=== PATIENT | female | born 1940 | race Caucasian/White ===

== ENCOUNTER 2019-12-16 16:25 | Inpatient (IN) | payer MEDICARE, OTHER ==
[~2019-12-16] VITALS: Ht 152.4 cm; Wt 66.0 kg
[2019-12-16 00:03] VITALS: BP 139/66
--- NOTE | 2019-12-16 16:30 | NUR ---
Dr. Okeefe at bedside for MSE
[2019-12-16] MEDS ORDERED: ZIPRASIDONE MESYLATE 20 MG VIAL IM ONE ×4 (17:00→18:15)
[2019-12-16] MEDS ORDERED: diphenhydrAMINE 50 MG/1 ML VIAL IV ONE (17:00)
[2019-12-16] MEDS ORDERED: INSU100V28 SQ (17:05)
[2019-12-16] MEDS ORDERED: DEXT50DI8 IV (17:05)
[2019-12-16] MEDS ORDERED: INSU3INS6 SQ (17:05)
[2019-12-16] MEDS ORDERED: LORA-259 GT (17:05)
[2019-12-16] MEDS ORDERED: QUET50TA GT (17:05)
[2019-12-16] MEDS ORDERED: DEXT38GE12 PO (17:05)
[2019-12-16] MEDS ORDERED: ASCO500P18 GT (17:05)
[2019-12-16] MEDS ORDERED: GLUC1KIT IJ (17:05)
[2019-12-16] MEDS ORDERED: FERR325T28 GT (17:05)
[2019-12-16] MEDS ORDERED: APIX2.5T GT (17:05)
[2019-12-16] MEDS ORDERED: ONDA4TAB5 GT (17:05)
[2019-12-16] MEDS ORDERED: VALP250C3 GT (17:05)
[2019-12-16] MEDS ORDERED: LEVE500T20 GT (17:05)
[2019-12-16 17:13] LABS: BASOPHILS # (AUTO) 0.1 K/uL (0.0-8.0); BASOPHILS % (AUTO) 1.3 % (0.0-2.0); EOSINOPHILS # (AUTO) 0.7 K/uL (0.0-0.7); EOSINOPHILS % (AUTO) 8.8 % (0.0-7.0); HEMATOCRIT 29.4 % (31.2-41.9); HEMOGLOBIN 9.7 g/dL (10.9-14.3); LYMPHOCYTES # (AUTO) 1.9 K/uL (20.0-40.0); LYMPHOCYTES % (AUTO) 24.8 % (20.5-51.5); MEAN CORPUSCULAR HEMOGLOBIN 29.9 uug (24.7-32.8); MEAN CORPUSCULAR HGB CONC 33 g/dL (32.3-35.6); MEAN CORPUSCULAR VOLUME 90.4 fL (75.5-95.3); MONOCYTES # (AUTO) 0.7 K/uL (2.0-10.0); MONOCYTES % (AUTO) 8.6 % (0.0-11.0); NEUTROPHILS # (AUTO) 4.4 K/uL (1.8-8.9); NEUTROPHILS % (AUTO) 56.5 % (38.5-71.5); PLATELET COUNT (AUTO) 209 K/uL (179-408); RED BLOOD CELL COUNT(AUTO) 3.25 MIL/uL (3.63-4.92); WHITE BLOOD COUNT (AUTO) 7.8 K/uL (3.8-11.8)
[2019-12-16] MEDS ORDERED: diphenhydrAMINE 50 MG/1 ML VIAL ONE (17:14)
[2019-12-16 17:27] LABS: ALANINE AMINOTRANSFERASE 17 U/L (14-59); ALKALINE PHOSPHATASE 64 U/L (50-136); ASPARTATE AMINOTRANSFERASE 13 U/L (15-37); BILIRUBIN,DIRECT 0.1 mg/dL (0.0-0.2); BILIRUBIN,TOTAL 0.3 mg/dL (0.2-1.0); CARBON DIOXIDE 30 mmol/L (21-32); CHLORIDE 105 mmol/L (98-107); CREATININE 1.3 mg/dL (0.6-1.3); GLUCOSE 142 mg/dL (74-106); POTASSIUM 4.1 mmol/L (3.5-5.1); TOTAL PROTEIN, SERUM 7.1 g/dL (6.4-8.2); UREA NITROGEN, BLOOD 43 mg/dL (7-18)
[2019-12-16 17:34] LABS: THYROID STIMULATING HORMONE 6.002 mIU/mL (0.358-3.740)
[2019-12-16 17:40] LABS: ETHANOL < 3 MG/DL (0-0)
[2019-12-16 18:10] LABS: *BILIRUBIN,URIN NEGATIVE (NEGATIVE); *BLOOD, URINE 2+ (NEGATIVE); *CLARITY,URINE CLOUDY (CLEAR); *COLOR,URINE YELLOW (YELLOW); *KETONES,URINE NEGATIVE (NEGATIVE); *UROBILINOGEN,URINE 0.2 E.U./dl (NORMAL); LEUKOCYTE ESTERASE ,URINE 3+ (NEGATIVE); NITRITE, URINE POSITIVE (NEGATIVE); UGLUCOSE NEGATIVE (NEGATIVE)
[2019-12-16 18:24] LABS: *AMPHETAMINE, URINE NEGATIVE (NEGATIVE); *BARBITURATE, URINE NEGATIVE (NEGATIVE); *CANNABINOID, URINE NEGATIVE (NEGATIVE); *COCCAINE, URINE NEGATIVE (NEGATIVE); *OPIATE, URINE NEGATIVE (NEGATIVE); *PHENCYCLIDINE SCREEN,URINE NEGATIVE (NEGATIVE)
[2019-12-16] MEDS ORDERED: CEFTRIAXONE 1 G in IV DEXTROSE 5% 50 ML IV ONE (18:30)
[2019-12-16] MEDS ORDERED: CEFTRIAXONE /D5W 50ML IVPB **ER PYXIS IV ONE (18:30)
--- NOTE | 2019-12-16 18:31 | NUR ---
Dr. Okeefe speaking with Dr. Padron
--- NOTE | 2019-12-16 18:35 | NUR ---
Pt. admitted to Telemetry , under care of Dr. Padron Belongs List completed, MRSA swab done
[2019-12-16] MEDS ORDERED: LORAZEPAM 2 MG/1 ML VIAL IV ONE (18:45)
[2019-12-16] MEDS ORDERED: LORAZEPAM 2 MG/1 ML VIAL ONE (18:53)
--- NOTE | 2019-12-16 19:27 | NUR ---
Report given to Dolores PIEDRA
--- NOTE | 2019-12-16 19:42 | NUR ---
received patient arousable to touch , on bedside monitor , SR, , hl lac intact , gt intact , cesar intact
--- NOTE | 2019-12-16 20:10 | NUR ---
Patient arrived on unit via gurney from ED. AAOx1 to name. Pt is confused. No signs or symptoms of acute distress noted at this time. Pt is on RA and denies SOB. Pt unable to verbalize pain, speech is delayed and unclear. Using the FLACC Scale rating is 0. assistant manager retail on. Bed low and in locked position. Bed alarm on. Seizure precautions in place and will continue to monitor.
[2019-12-16 20:24] LABS: BACTERIA,URINE MANY /HPF (NONE SEEN); SQUAMOUS EPITHELIAL CELL,UR FEW /HPF (NONE SEEN); WBC,URINE TNTC /HPF (0-3)
[2019-12-16] MEDS ORDERED: levETIRAcetam 500 MG/5 ML LIQUID UDC PO SCH (21:00)
[2019-12-16] MEDS ORDERED: INSULIN REGULAR, HUMAN 300 UNIT/3 ML VIAL SQ PRN (22:15)
[2019-12-16] MEDS ORDERED: DEXTROSE 50% 50 ML DISP.SYRIN IV PRN (22:15)
[2019-12-16] MEDS: VALPROIC ACID 250 MG/5 ML LIQUID UDC GT SCH (23:16)
[2019-12-16] MEDS: QUETIAPINE FUMARATE 25 MG TABLET GT SCH (23:17)
[2019-12-16] MEDS: APIXABAN 5 MG TABLET GT SCH (23:22)
[2019-12-17] MEDS ORDERED: DEXTROSE 50% 50 ML DISP.SYRIN IV PRN (00:30)
[2019-12-17] MEDS ORDERED: INSULIN REGULAR, HUMAN 300 UNIT/3 ML VIAL SQ PRN (00:30)
[2019-12-17] MEDS ORDERED: LORAZEPAM 1 MG TABLET GT SCH (01:00)
[2019-12-17] MEDS: BLOOD SUGAR DIAGNOSTIC 1 EACH STRIP VI SCH ×5 (01:17→23:33)
[2019-12-17 04:12] VITALS: BP 135/57
[2019-12-17 06:45] LABS: BASOPHILS # (AUTO) 0.1 K/uL (0.0-8.0); BASOPHILS % (AUTO) 1.3 % (0.0-2.0); EOSINOPHILS # (AUTO) 0.6 K/uL (0.0-0.7); EOSINOPHILS % (AUTO) 7.3 % (0.0-7.0); HEMATOCRIT 31.5 % (31.2-41.9); HEMOGLOBIN 10.3 g/dL (10.9-14.3); LYMPHOCYTES # (AUTO) 1.3 K/uL (20.0-40.0); LYMPHOCYTES % (AUTO) 15.8 % (20.5-51.5); MEAN CORPUSCULAR HEMOGLOBIN 29.7 uug (24.7-32.8); MEAN CORPUSCULAR HGB CONC 33 g/dL (32.3-35.6); MEAN CORPUSCULAR VOLUME 90.4 fL (75.5-95.3); MONOCYTES # (AUTO) 0.7 K/uL (2.0-10.0); MONOCYTES % (AUTO) 8.2 % (0.0-11.0); NEUTROPHILS # (AUTO) 5.6 K/uL (1.8-8.9); NEUTROPHILS % (AUTO) 67.4 % (38.5-71.5); PLATELET COUNT (AUTO) 211 K/uL (179-408); RED BLOOD CELL COUNT(AUTO) 3.48 MIL/uL (3.63-4.92); WHITE BLOOD COUNT (AUTO) 8.3 K/uL (3.8-11.8)
[2019-12-17 06:55] LABS: CREATININE 1.2 mg/dL (0.6-1.3); POTASSIUM 4.3 mmol/L (3.5-5.1)
[2019-12-17] MEDS ORDERED: BLOOD SUGAR DIAGNOSTIC 1 EACH STRIP VI SCH (07:30)
[2019-12-17] MEDS ORDERED: ONDANSETRON HCL 4 MG TABLET GT PRN (07:45)
[2019-12-17] MEDS ORDERED: NEPRO 1000 ML GT PRN ×2 (07:45→10:34)
--- NOTE | 2019-12-17 08:00 | NUR ---
Pt in bed asleep, arousable by name and touch, confused, trying to get up. On RA with no SOB or distress at this time. On tele. IV on left AC 20g flushed and patent. Gtube feeding in place and on, no residual. unable to ambulate. Seizure precaution in place. Bed locked in lowest position with siderails 3x up. Bed alarm on. Call light within reach
[2019-12-17] MEDS: FERROUS SULFATE 300 MG/5 ML LIQUID UDC GT SCH ×3 (08:29→16:19)
[2019-12-17] MEDS: VALPROIC ACID 250 MG/5 ML LIQUID UDC GT SCH ×2 (08:30→16:19)
[2019-12-17] MEDS: levETIRAcetam 500 MG/5 ML LIQUID UDC GT SCH ×2 (08:30→20:09)
[2019-12-17] MEDS: QUETIAPINE FUMARATE 25 MG TABLET GT SCH ×3 (08:31→16:19)
[2019-12-17] MEDS: ASCORBIC ACID 250 MG TABLET GT SCH ×2 (08:31→20:09)
[2019-12-17] MEDS: APIXABAN 5 MG TABLET GT SCH ×2 (08:32→16:20)
[2019-12-17] MEDS: LORAZEPAM 1 MG TABLET GT SCH ×3 (08:36→16:18)
[2019-12-17] MEDS: INSULIN GLARGINE,HUM 300 UNITS/3 ML CARTRIDGE SQ SCH (08:38)
[2019-12-17] MEDS ORDERED: FERROUS SULFATE 325 MG TABEC PO SCH (09:00)
[2019-12-17 11:08] VITALS: BP 131/62
--- NOTE | 2019-12-17 12:45 | NUR ---
Patient yelling, very confused, unable to redirect and reorient.
--- NOTE | 2019-12-17 13:07 | NUR ---
decreased TF rate to 30cc/hr
[2019-12-17] MEDS: NEPRO 1000 ML GT PRN (14:07)
--- NOTE | 2019-12-17 14:09 | NUR ---
Brought down for CT chest via bed.
[2019-12-17 15:06] VITALS: BP 137/50
[2019-12-17] MEDS: CEFTRIAXONE 1 G in IV DEXTROSE 5% 50 ML IV SCH (17:38)
--- NOTE | 2019-12-17 18:10 | NUR ---
Pt stable throughout shift, slept intermittently, yells at times, unable to be redirected and reoriented. On RA with no SOB or distress at this time. On tele with uncontrolled Afib. IV on left AC 20g flushed and patent. Seizure precaution observed. Gtube feeding @ 30cc/hr, no residual. Bed locked in lowest position with siderails 3x up. Call light within reach
--- NOTE | 2019-12-17 19:00 | NUR ---
Received pt in bed, sleeping. Easy to arouse. Pt is unable to reorient or redirect. No s/s of acute distress. V/S stable on room air. Pts Gtube is intact, patent with no s/s of infection, running with Nepro at 30cc. Pt is controlled afib, 71 on tele monitor. Seizure precaution observed. Safety measures in place. Bed low and locked in position. Call light within reach. Will continue with the plan of care.
[2019-12-17 20:04] VITALS: BP 127/50
[2019-12-18 00:47] VITALS: BP 127/56
[2019-12-18] MEDS ORDERED: QUETIAPINE FUMARATE 25 MG TABLET GT ONE (03:15)
--- NOTE | 2019-12-18 03:20 | NUR ---
Pt awake, keep on yelling out names, trying to get out of the bed. SECTION MAINTAINER Pito notified, ordered 12.5mg Seroquel. Will carry out order. Will continue to monitor.
[2019-12-18 05:02] VITALS: BP 146/62
[2019-12-18] MEDS: BLOOD SUGAR DIAGNOSTIC 1 EACH STRIP VI SCH ×3 (06:23→17:21)
[2019-12-18] MEDS: NEPRO 1000 ML GT PRN (06:25)
[2019-12-18 06:44] LABS: BASOPHILS # (AUTO) 0.1 K/uL (0.0-8.0); BASOPHILS % (AUTO) 1.2 % (0.0-2.0); EOSINOPHILS # (AUTO) 0.7 K/uL (0.0-0.7); EOSINOPHILS % (AUTO) 8.4 % (0.0-7.0); HEMATOCRIT 28.6 % (31.2-41.9); HEMOGLOBIN 9.4 g/dL (10.9-14.3); LYMPHOCYTES # (AUTO) 1.8 K/uL (20.0-40.0); MEAN CORPUSCULAR HEMOGLOBIN 29.9 uug (24.7-32.8); MEAN CORPUSCULAR HGB CONC 33 g/dL (32.3-35.6); MEAN CORPUSCULAR VOLUME 90.9 fL (75.5-95.3); MONOCYTES # (AUTO) 0.7 K/uL (2.0-10.0); MONOCYTES % (AUTO) 8.4 % (0.0-11.0); PLATELET COUNT (AUTO) 205 K/uL (179-408); RED BLOOD CELL COUNT(AUTO) 3.14 MIL/uL (3.63-4.92); WHITE BLOOD COUNT (AUTO) 8.3 K/uL (3.8-11.8)
[2019-12-18 06:58] LABS: CREATININE 1.1 mg/dL (0.6-1.3); POTASSIUM 4.1 mmol/L (3.5-5.1)
--- NOTE | 2019-12-18 07:05 | NUR ---
Pt slept intermittently through the night. Pt had episodes of yelling and trying to get out of bed. Pt is unable to redirect and reorient. Pt has no s/s of acute distress. V/S stable on room air. Controlled afib 85 on tele monitor. Gtube is intact with Nepro running at 30cc. Comfort care and needs attended. Repositioned for comfort. Kept clean and dry. Fall and aspiration precaution maintained. Safety measures in place. Bed low and locked in position. Call light within reach. Will endorse to the oncoming nurse accordingly
[2019-12-18] MEDS: FERROUS SULFATE 300 MG/5 ML LIQUID UDC GT SCH ×3 (07:39→16:03)
[2019-12-18] MEDS: VALPROIC ACID 250 MG/5 ML LIQUID UDC GT SCH ×2 (07:39→16:03)
[2019-12-18] MEDS: levETIRAcetam 500 MG/5 ML LIQUID UDC GT SCH ×2 (07:39→20:42)
[2019-12-18] MEDS: QUETIAPINE FUMARATE 25 MG TABLET GT SCH ×3 (07:40→16:03)
[2019-12-18] MEDS: LORAZEPAM 1 MG TABLET GT SCH ×4 (07:40→20:43)
[2019-12-18] MEDS: ASCORBIC ACID 250 MG TABLET GT SCH ×2 (07:41→20:43)
[2019-12-18] MEDS: APIXABAN 5 MG TABLET GT SCH ×2 (07:42→16:14)
[2019-12-18] MEDS: INSULIN GLARGINE,HUM 300 UNITS/3 ML CARTRIDGE SQ SCH (07:44)
[2019-12-18 11:57] VITALS: BP 149/55
[2019-12-18 16:12] VITALS: BP 142/69
[2019-12-18] MEDS: CEFTRIAXONE 1 G in IV DEXTROSE 5% 50 ML IV SCH (17:17)
--- NOTE | 2019-12-18 19:30 | NUR ---
Received patient in bed, awake, yelling out for "Jennifer" and "Ilya". Patient is confused and unable to be redirected or reoriented. No signs or symptoms of acute distress at this time. Pt is on RA, no signs of SOB. Gtube intact running Nepro at 30ml/hr. satellite project site monitor is on. Bed in low position, locked, and alarm on. Safety measures in place, will continue to monitor.
[2019-12-18 20:16] VITALS: BP 143/63
--- NOTE | 2019-12-18 20:38 | NUR ---
Pt is restless and continuing to yell out. Unable to reorient. Notified Dr. Padron, ordered to change Ativan frequency to Q8HR. Will carry out and continue to monitor.
[2019-12-19] MEDS: BLOOD SUGAR DIAGNOSTIC 1 EACH STRIP VI SCH ×3 (00:10→12:10)
[2019-12-19 00:21] VITALS: BP 118/50
[2019-12-19] MEDS ORDERED: LORAZEPAM 1 MG TABLET GT ONE (01:45)
--- NOTE | 2019-12-19 01:45 | NUR ---
Patient is restless, continuously yelling, trying to get out of bed. patient is unable to be redirected, reoriented, or distracted. Notified Pito FOREST SCIENCE PROFESSOR, ordered one time 1 mg Ativan. Will administer and continue to monitor.
[2019-12-19] MEDS: LORAZEPAM 1 MG TABLET GT SCH ×2 (05:15→13:05)
[2019-12-19 05:55] VITALS: BP 127/99
--- NOTE | 2019-12-19 07:07 | NUR ---
Patient lying in bed, yelling out, unable to redirect and reorient patient. Pt was awake all night. No signs of acute distress. V/S stable. kiln tender on. Pt on RA, denies SOB and pain. Bed low, locked, and alarm on. Seizure precautions in place. Safety measures in place and will endorse to oncoming staff.
[2019-12-19] MEDS: QUETIAPINE FUMARATE 25 MG TABLET GT SCH ×2 (08:37→13:05)
[2019-12-19] MEDS: ASCORBIC ACID 250 MG TABLET GT SCH (08:37)
[2019-12-19] MEDS: FERROUS SULFATE 300 MG/5 ML LIQUID UDC GT SCH ×2 (08:38→13:06)
[2019-12-19] MEDS: levETIRAcetam 500 MG/5 ML LIQUID UDC GT SCH (08:38)
[2019-12-19] MEDS: VALPROIC ACID 250 MG/5 ML LIQUID UDC GT SCH (08:39)
[2019-12-19] MEDS: APIXABAN 5 MG TABLET GT SCH (08:43)
[2019-12-19] MEDS: INSULIN GLARGINE,HUM 300 UNITS/3 ML CARTRIDGE SQ SCH (08:43)
[2019-12-19] MEDS ORDERED: FERR300L GT (12:37)
[2019-12-19] MEDS ORDERED: Sulfameth/Trimeth 800/160 Mg GT (12:37)
[2019-12-19] MEDS ORDERED: AMPI500C11 PO (12:37)
[2019-12-19 12:39] VITALS: BP 139/70
--- NOTE | 2019-12-19 15:20 | NUR ---
Full telephone SBAR report given to Jessy whatley [place].
--- NOTE | 2019-12-19 16:18 | NUR ---
Full SBAR report given to ambulance. Discharge instructions provided and discussed with TADEO Jiménez at the facility. Meds reconciled by MD and reviewed with the RN at facility. RN verbalized understanding of discharge instructions and medications. PIV left a/c removed. G-tube flushed and clamped. Discharge photos taken and placed in the chart. Pt stable and nad noted upon discharge. Addendum: 12/19/19 at 1623 by HUMZA RG RN Left a phone message for Terrell (son) and made aware of pt's discharge back to facility.
[2019-12-19] MEDS ORDERED: SULFAMETH/TRIMETH 800/160 MG TABLET GT SCH (21:00)
== END 2019-12-19 16:25 | DRG 689 ==
LOC: ER 16:29 → TELE3 19:32
PROVIDERS: ADMIT Internal Medicine; ATTEND Internal Medicine
DX: N39.0 Urinary tract infection, site not specified (principal); N17.0 Acute kidney failure with tubular necrosis; G93.41 Metabolic encephalopathy; I48.20 Chronic atrial fibrillation, unspecified; E11.22 Type 2 diabetes mellitus with diabetic chronic kidney disease; N18.9 Chronic kidney disease, unspecified; I13.10 Hypertensive heart and chronic kidney disease without heart failure, with stage 1 through stage 4 chronic kidney disease, or unspecified chronic kidney disease; Z79.4 Long term (current) use of insulin; E03.9 Hypothyroidism, unspecified; R13.10 Dysphagia, unspecified; Z79.01 Long term (current) use of anticoagulants; Z86.73 Personal history of transient ischemic attack (TIA), and cerebral infarction without residual deficits; B96.20 Unspecified Escherichia coli [E. coli] as the cause of diseases classified elsewhere; B95.2 Enterococcus as the cause of diseases classified elsewhere; D63.8 Anemia in other chronic diseases classified elsewhere; G40.909 Epilepsy, unspecified, not intractable, without status epilepticus; Z93.1 Gastrostomy status; F20.9 Schizophrenia, unspecified; F03.90 Unspecified dementia, unspecified severity, without behavioral disturbance, psychotic disturbance, mood disturbance, and anxiety; R91.1 Solitary pulmonary nodule
CPT/HCPCS: 36415; 70030-TC; 71045; 71250; 80307; 84443; 85025; 85730; 87077; 87086; 93005; 93307; A4217; A4663; C1758; G0378; G0480; J0290; J0696; J1200; J1815; J2060; J3486; J7050; J7060; Q0162

== ENCOUNTER 2020-10-22 09:13 | Inpatient (IN) | payer MEDICARE, OTHER ==
[~2020-10-22] VITALS: Ht 157.5 cm; Wt 63.5 kg
[~2020-10-22 09:13] MED LIST: AMPI500C11 PO; APIX2.5T GT; ASCO500P18 GT; DEXT38GE12 PO; DEXT50DI8 IV; FERR300L GT; FERR325T28 GT; GLUC1KIT IJ; INSU100V28 SQ; INSU3INS6 SQ; LEVE500T20 GT; LORA-259 GT; ONDA4TAB5 GT; QUET50TA GT; Sulfameth/Trimeth 800/160 Mg GT; VALP250C3 GT
[2020-10-22] MEDS ORDERED: IV NORMAL SALINE 1000 ML BAG IV ONE ×2 (09:30→11:15)
[2020-10-22 09:44] LABS: HEMATOCRIT 38.8 % (31.2-41.9); MEAN CORPUSCULAR HEMOGLOBIN 31.3 uug (24.7-32.8); MEAN CORPUSCULAR VOLUME 97.4 fL (75.5-95.3); PLATELET COUNT (AUTO) 305 K/uL (179-408)
[2020-10-22] MEDS ORDERED: ONDANSETRON 4 MG/2 ML VIAL IV ONE (09:45)
[2020-10-22] MEDS ORDERED: ONDANSETRON 4 MG/2 ML VIAL ONE (09:49)
[2020-10-22 09:51] LABS: CARBON DIOXIDE 30 mmol/L (21-32); CHLORIDE 105 mmol/L (98-107); CREATININE 1.5 mg/dL (0.6-1.3); POTASSIUM 3.9 mmol/L (3.5-5.1)
[2020-10-22 10:00] LABS: GLUCOSE 424 mg/dL (74-106); UREA NITROGEN, BLOOD 81 mg/dL (7-18)
[2020-10-22] MEDS ORDERED: ACETAMINOPHEN 650 MG SUPP.RECT RC ONE ×2 (10:00→10:04)
[2020-10-22] MEDS ORDERED: CEFTRIAXONE 1 G in IV DEXTROSE 5% 50 ML IV ONE (10:00)
[2020-10-22 10:02] LABS: ALANINE AMINOTRANSFERASE 23 U/L (14-59); ALKALINE PHOSPHATASE 79 U/L (50-136); ASPARTATE AMINOTRANSFERASE 25 U/L (15-37); BILIRUBIN,DIRECT 0.1 mg/dL (0.0-0.2); BILIRUBIN,TOTAL 0.3 mg/dL (0.2-1.0); TOTAL PROTEIN, SERUM 7.2 g/dL (6.4-8.2)
[2020-10-22] MEDS ORDERED: VIT1TABL46 GT (10:02)
[2020-10-22] MEDS ORDERED: INSU3INS6 SQ (10:02)
[2020-10-22] MEDS ORDERED: NIFE30TA91 GT (10:02)
[2020-10-22] MEDS ORDERED: SENN-261 GT (10:02)
[2020-10-22] MEDS ORDERED: LINA5TAB GT (10:02)
[2020-10-22] MEDS ORDERED: FAMO20TA8 GT (10:02)
[2020-10-22] MEDS ORDERED: DOCU100C36 GT (10:02)
[2020-10-22] MEDS ORDERED: CLON0.1T GT (10:02)
[2020-10-22] MEDS ORDERED: CEFTRIAXONE /D5W 50ML IVPB **ER PYXIS IV ONE (10:04)
[2020-10-22] MEDS ORDERED: GLUC1KIT IM (10:36)
[2020-10-22] MEDS ORDERED: NA P133E RC (10:36)
[2020-10-22] MEDS ORDERED: HALO5TAB IM (10:36)
[2020-10-22] MEDS ORDERED: BISA10SU61 RC (10:36)
[2020-10-22] MEDS ORDERED: INSU100I47 SQ (10:36)
[2020-10-22] MEDS ORDERED: ACET-2154 GT (10:36)
[2020-10-22 10:54] LABS: *BILIRUBIN,URIN NEGATIVE (NEGATIVE); *BLOOD, URINE 2+ (NEGATIVE); *CLARITY,URINE TURBID (CLEAR); *COLOR,URINE LIGHT YELLOW (YELLOW); *KETONES,URINE NEGATIVE (NEGATIVE); *UROBILINOGEN,URINE 0.2 E.U./dl (NORMAL); LEUKOCYTE ESTERASE ,URINE 3+ (NEGATIVE); NITRITE, URINE NEGATIVE (NEGATIVE); PH,URINE 5.5 (5.0-8.0); UGLUCOSE NEGATIVE (NEGATIVE)
[2020-10-22] MEDS ORDERED: VANCOMYCIN 1G/D5W 200 ML PIGGYBACK IV ONE (11:15)
[2020-10-22] MEDS ORDERED: IV NORMAL SALINE 500 ML BAG IV ONE (11:15)
[2020-10-22] MEDS ORDERED: VANCOMYCIN IV 200 ML ONE (11:16)
[2020-10-22 16:50] VITALS: BP 124/74
[2020-10-22] MEDS ORDERED: FLEET ENEMA 133 ML BOTTLE RC PRN (17:00)
[2020-10-22] MEDS ORDERED: VALPROIC ACID 250 MG CAPSULE PO SCH (17:00)
[2020-10-22] MEDS ORDERED: ACETAMINOPHEN 325 MG TABLET GT SCH (17:00)
[2020-10-22] MEDS ORDERED: MAGNESIUM HYDROXIDE 30 ML LIQUID UDC PO PRN (17:00)
[2020-10-22] MEDS ORDERED: ACETAMINOPHEN 325 MG TABLET PO PRN (17:00)
[2020-10-22] MEDS ORDERED: GLUCOSE ORAL GEL 15 GM TUBE PO PRN (17:00)
[2020-10-22] MEDS ORDERED: DOCUSATE SODIUM 100 MG CAPSULE PO SCH (17:00)
[2020-10-22] MEDS ORDERED: CLONIDINE HCL 0.1 MG TABLET GT PRN (17:00)
[2020-10-22] MEDS ORDERED: HALOPERIDOL 5 MG TABLET PO PRN (17:00)
[2020-10-22] MEDS ORDERED: ZOLPIDEM 5 MG TABLET PO PRN (17:00)
[2020-10-22] MEDS ORDERED: DEXTROSE 50% 50 ML DISP.SYRIN IV PRN (17:00)
[2020-10-22] MEDS ORDERED: ONDANSETRON 4 MG/2 ML VIAL IV PRN (17:00)
[2020-10-22] MEDS ORDERED: Z GUARD REMEDY PASTE 57 GM TUBE TOP PRN (17:00)
[2020-10-22] MEDS ORDERED: NEPRO (VANILLA) 237 ML CAN PO SCH (17:30)
[2020-10-22] MEDS ORDERED: GLUCOSE ORAL GEL 15 GM TUBE GT PRN (17:39)
[2020-10-22] MEDS ORDERED: MAGNESIUM HYDROXIDE 30 ML LIQUID UDC GT PRN (17:39)
[2020-10-22 17:46] LABS: BACTERIA,URINE MODERATE /HPF (NONE SEEN); RBC,URINE 20-50 /HPF (0-3); SQUAMOUS EPITHELIAL CELL,UR FEW /HPF (NONE SEEN); WBC,URINE TNTC /HPF (0-3)
[2020-10-22] MEDS: APIXABAN 2.5 MG TABLET GT SCH (17:58)
[2020-10-22] MEDS: SENNOSIDES 1 TABLET GT SCH (17:58)
[2020-10-22] MEDS ORDERED: SENNOSIDES 1 TABLET PO SCH (18:00)
[2020-10-22] MEDS: BLOOD SUGAR DIAGNOSTIC 1 EACH STRIP VI SCH (20:16)
[2020-10-22] MEDS: INSULIN REGULAR, HUMAN 300 UNIT/3 ML VIAL SQ PRN (20:16)
[2020-10-22 21:47] VITALS: BP 136/64
[2020-10-22] MEDS ORDERED: IV NS 1000 ML 1,000 ML IV PRN (23:00)
[2020-10-22 23:57] LABS: *BILIRUBIN,URIN NEGATIVE (NEGATIVE); *BLOOD, URINE 1+ (NEGATIVE); *CLARITY,URINE CLOUDY (CLEAR); *COLOR,URINE YELLOW (YELLOW); *KETONES,URINE NEGATIVE (NEGATIVE); *UROBILINOGEN,URINE 0.2 E.U./dl (NORMAL); LEUKOCYTE ESTERASE ,URINE 3+ (NEGATIVE); NITRITE, URINE NEGATIVE (NEGATIVE); PH,URINE 5.5 (5.0-8.0); UGLUCOSE TRACE (NEGATIVE)
[2020-10-23 00:06] VITALS: BP 118/47
[2020-10-23 00:08] LABS: *CREATININE,URINE 49.7 mg/dL (30-125); *URINE TOTAL PROTEIN RANDOM 107.4 mg/dL (<150/24HR)
[2020-10-23 00:35] LABS: BACTERIA,URINE MANY /HPF (NONE SEEN); SQUAMOUS EPITHELIAL CELL,UR FEW /HPF (NONE SEEN); WBC,URINE 80-100 /HPF (0-3); YEAST,URINE MANY /HPF (NONE SEEN)
[2020-10-23 00:36] LABS: URINE AMORPHOUS URATE FEW /HPF
[2020-10-23 04:09] VITALS: BP 130/53
[2020-10-23] MEDS: BLOOD SUGAR DIAGNOSTIC 1 EACH STRIP VI SCH ×4 (06:32→21:26)
[2020-10-23 06:51] LABS: HEMATOCRIT 33.5 % (31.2-41.9); MEAN CORPUSCULAR HEMOGLOBIN 32.2 uug (24.7-32.8); MEAN CORPUSCULAR VOLUME 98.1 fL (75.5-95.3); PLATELET COUNT (AUTO) 189 K/uL (179-408)
[2020-10-23 06:53] LABS: CREATININE 1.1 mg/dL (0.6-1.3); MAGNESIUM 2.4 mg/dL (1.8-2.4); PHOSPHOROUS 2.6 mg/dL (2.5-4.9); POTASSIUM 3.5 mmol/L (3.5-5.1)
[2020-10-23] MEDS: INSULIN REGULAR, HUMAN 300 UNIT/3 ML VIAL SQ PRN ×4 (08:16→22:08)
[2020-10-23] MEDS: DOCUSATE SODIUM 100 MG/10 ML LIQUID UDC GT SCH ×2 (08:30→16:31)
[2020-10-23] MEDS: VALPROIC ACID 250 MG/5 ML LIQUID UDC GT SCH ×2 (08:30→16:30)
[2020-10-23] MEDS: FAMOTIDINE 20 MG TABLET GT SCH (08:31)
[2020-10-23] MEDS: LINAGLIPTIN 5 MG TABLET GT SCH (08:31)
[2020-10-23] MEDS: NIFEdipine XL 30 MG TABSR PO SCH (08:33)
[2020-10-23] MEDS: APIXABAN 2.5 MG TABLET GT SCH ×2 (08:34→16:31)
[2020-10-23] MEDS: HALOPERIDOL 5 MG TABLET GT PRN (08:55)
[2020-10-23] MEDS ORDERED: BISACODYL 10 MG SUPP.RECT RC SCH (09:00)
[2020-10-23] MEDS ORDERED: BISACODYL 10 MG SUPP.RECT RC PRN (10:14)
[2020-10-23 11:57] VITALS: BP 113/24
[2020-10-23] MEDS ORDERED: CEFTRIAXONE 1 G VIAL IV SCH (13:00)
[2020-10-23] MEDS: CEFTRIAXONE 1 G in IV DEXTROSE 5% 50 ML IV SCH (13:25)
[2020-10-23 15:31] VITALS: BP 115/28
[2020-10-23] MEDS: SENNOSIDES 1 TABLET GT SCH (17:01)
[2020-10-23] MEDS: NEPRO 1000 ML GT PRN (18:38)
[2020-10-23 20:00] VITALS: BP 135/49
[2020-10-23] MEDS: ACETAMINOPHEN 325 MG TABLET GT PRN (21:16)
[2020-10-23] MEDS: Z GUARD REMEDY PASTE 57 GM TUBE TOP SCH (21:16)
[2020-10-23] MEDS: INSULIN GLARGINE,HUM 300 UNITS/3 ML CARTRIDGE SQ SCH (22:07)
[2020-10-24 00:35] VITALS: BP 159/60
[2020-10-24] MEDS: ZOLPIDEM 5 MG TABLET GT PRN (02:09)
[2020-10-24] MEDS: HALOPERIDOL 5 MG TABLET GT PRN ×3 (03:17→18:15)
[2020-10-24 05:00] VITALS: BP 106/57
[2020-10-24] MEDS: BLOOD SUGAR DIAGNOSTIC 1 EACH STRIP VI SCH ×4 (06:46→22:05)
[2020-10-24 07:52] LABS: HEMATOCRIT 34.8 % (31.2-41.9); MEAN CORPUSCULAR HEMOGLOBIN 31.6 uug (24.7-32.8); MEAN CORPUSCULAR VOLUME 96.5 fL (75.5-95.3); PLATELET COUNT (AUTO) 206 K/uL (179-408)
[2020-10-24 08:09] LABS: BILIRUBIN,TOTAL 0.3 mg/dL (0.2-1.0); CREATININE 1.1 mg/dL (0.6-1.3); MAGNESIUM 2.4 mg/dL (1.8-2.4); PHOSPHOROUS 2.4 mg/dL (2.5-4.9); POTASSIUM 3.9 mmol/L (3.5-5.1); TOTAL PROTEIN, SERUM 6.2 g/dL (6.4-8.2)
[2020-10-24] MEDS: INSULIN REGULAR, HUMAN 300 UNIT/3 ML VIAL SQ PRN ×4 (08:25→22:07)
[2020-10-24] MEDS: LINAGLIPTIN 5 MG TABLET GT SCH (08:28)
[2020-10-24] MEDS: DOCUSATE SODIUM 100 MG/10 ML LIQUID UDC GT SCH ×2 (08:28→16:26)
[2020-10-24] MEDS: Z GUARD REMEDY PASTE 57 GM TUBE TOP SCH ×2 (08:28→22:02)
[2020-10-24] MEDS: VALPROIC ACID 250 MG/5 ML LIQUID UDC GT SCH ×2 (08:28→16:26)
[2020-10-24] MEDS: FAMOTIDINE 20 MG TABLET GT SCH (08:28)
[2020-10-24] MEDS: APIXABAN 2.5 MG TABLET GT SCH ×2 (08:28→16:27)
[2020-10-24] MEDS: NIFEdipine XL 30 MG TABSR PO SCH (08:29)
[2020-10-24 12:00] VITALS: BP 107/41
[2020-10-24] MEDS: CEFTRIAXONE 1 G in IV DEXTROSE 5% 50 ML IV SCH (14:02)
[2020-10-24] MEDS ORDERED: NEUTRA PHOS PACKET PO ONE (15:30)
[2020-10-24 15:37] VITALS: BP 151/53
[2020-10-24] MEDS: SENNOSIDES 1 TABLET GT SCH (16:26)
[2020-10-24 20:33] VITALS: BP 91/45
[2020-10-24] MEDS: INSULIN GLARGINE,HUM 300 UNITS/3 ML CARTRIDGE SQ SCH (22:05)
[2020-10-25] VITALS (7 sets, daily range): BP systolic 85–161; BP diastolic 44–92
[2020-10-25] MEDS: ZOLPIDEM 5 MG TABLET GT PRN (00:49)
[2020-10-25] MEDS: ACETAMINOPHEN 325 MG TABLET GT PRN (00:49)
[2020-10-25] MEDS: NEPRO 1000 ML GT PRN (01:22)
[2020-10-25] MEDS: HALOPERIDOL 5 MG TABLET GT PRN (02:15)
[2020-10-25] MEDS: BLOOD SUGAR DIAGNOSTIC 1 EACH STRIP VI SCH ×3 (06:32→17:28)
[2020-10-25] MEDS: INSULIN REGULAR, HUMAN 300 UNIT/3 ML VIAL SQ PRN (06:45)
[2020-10-25] MEDS ORDERED: FLUCONAZOLE 200 MG TABLET GT ONE (07:00)
[2020-10-25 07:20] LABS: HEMATOCRIT 33.1 % (31.2-41.9); MEAN CORPUSCULAR HEMOGLOBIN 32.3 uug (24.7-32.8); MEAN CORPUSCULAR VOLUME 97.1 fL (75.5-95.3); PLATELET COUNT (AUTO) 193 K/uL (179-408)
[2020-10-25 07:24] LABS: BILIRUBIN,TOTAL 0.2 mg/dL (0.2-1.0); MAGNESIUM 2.5 mg/dL (1.8-2.4); PHOSPHOROUS 2.4 mg/dL (2.5-4.9); POTASSIUM 3.7 mmol/L (3.5-5.1); TOTAL PROTEIN, SERUM 6.1 g/dL (6.4-8.2)
[2020-10-25] MEDS: NIFEdipine XL 30 MG TABSR PO SCH ×2 (09:00→17:48)
[2020-10-25] MEDS: DOCUSATE SODIUM 100 MG/10 ML LIQUID UDC GT SCH ×2 (09:44→17:41)
[2020-10-25] MEDS: FAMOTIDINE 20 MG TABLET GT SCH (09:44)
[2020-10-25] MEDS: LINAGLIPTIN 5 MG TABLET GT SCH (09:45)
[2020-10-25] MEDS: APIXABAN 2.5 MG TABLET GT SCH ×2 (09:45→17:30)
[2020-10-25] MEDS: VALPROIC ACID 250 MG/5 ML LIQUID UDC GT SCH ×2 (09:50→17:30)
[2020-10-25] MEDS: Z GUARD REMEDY PASTE 57 GM TUBE TOP SCH (09:50)
[2020-10-25] MEDS ORDERED: NEUTRA PHOS PACKET PO ONE (15:15)
[2020-10-25] MEDS: SENNOSIDES 1 TABLET GT SCH (17:42)
[2020-11-03] MEDS ORDERED: VALP250S22 GT (12:59)
[2020-11-03] MEDS ORDERED: MICA100V IV (12:59)
[2020-11-15] MEDS ORDERED: APIX5TAB PO (10:05)
[2020-11-15] MEDS ORDERED: Blood Sugar Diagnostic VI (10:05)
[2020-11-15] MEDS ORDERED: Nepro GT (10:05)
[2020-11-15] MEDS ORDERED: VANC1PLA9 IV (10:05)
[2020-11-15] MEDS ORDERED: IPRA0.2S6 NEB (10:05)
[2020-11-15] MEDS ORDERED: ALBU1.25 NEB (10:05)
[2020-11-15] MEDS ORDERED: INSU100V28 SQ (10:05)
[2020-11-15] MEDS ORDERED: RXVAN XX (10:05)
== END 2020-10-25 18:30 | DRG 871 ==
LOC: ER 09:13 → TELE3 14:02 → MEDSURG3 10-25 11:03
PROVIDERS: ADMIT Internal Medicine; ATTEND Internal Medicine
PROC: 05HA33Z Insertion of Infusion Device into Left Brachial Vein, Percutaneous Approach (ICD-10-PCS; principal; 2020-10-22)
PROC: 05H933Z Insertion of Infusion Device into Right Brachial Vein, Percutaneous Approach (ICD-10-PCS; 2020-10-24)
DX: A41.9 Sepsis, unspecified organism (principal); N17.0 Acute kidney failure with tubular necrosis; J15.9 Unspecified bacterial pneumonia; J96.21 Acute and chronic respiratory failure with hypoxia; B37.49 Other urogenital candidiasis; R11.2 Nausea with vomiting, unspecified; Z93.1 Gastrostomy status; Z86.73 Personal history of transient ischemic attack (TIA), and cerebral infarction without residual deficits; Z79.4 Long term (current) use of insulin; Z79.01 Long term (current) use of anticoagulants; R13.10 Dysphagia, unspecified; N18.9 Chronic kidney disease, unspecified; I48.91 Unspecified atrial fibrillation; I12.9 Hypertensive chronic kidney disease with stage 1 through stage 4 chronic kidney disease, or unspecified chronic kidney disease; G40.909 Epilepsy, unspecified, not intractable, without status epilepticus; F03.90 Unspecified dementia, unspecified severity, without behavioral disturbance, psychotic disturbance, mood disturbance, and anxiety; F20.9 Schizophrenia, unspecified; E11.22 Type 2 diabetes mellitus with diabetic chronic kidney disease; R91.8 Other nonspecific abnormal finding of lung field; Z20.822 Contact with and (suspected) exposure to COVID-19; D64.9 Anemia, unspecified; E04.1 Nontoxic single thyroid nodule
CPT/HCPCS: 36415; 70030-TC; 71045; 71250; 83605; 83735; 84100; 84156; 84300; 85025; 86140; 87040; 87086; 93005; A4663; C1758; G0378; J0696; J1815; J2405; J3370; J7030; J7040; J7060

== ENCOUNTER 2020-10-30 12:42 | Inpatient (IN) | payer MEDICARE, OTHER ==
[~2020-10-30] VITALS: Ht 157.5 cm; Wt 65.8 kg
[~2020-10-30 12:42] MED LIST changes: +ACET-2154 GT; -AMPI500C11 PO; +BISA10SU61 RC; +CLON0.1T GT; -DEXT50DI8 IV; +DOCU100C36 GT; +FAMO20TA8 GT; -FERR300L GT; -FERR325T28 GT; -GLUC1KIT IJ; +GLUC1KIT IM; +HALO5TAB IM; +INSU100I47 SQ; -INSU100V28 SQ; -LEVE500T20 GT; +LINA5TAB GT; -LORA-259 GT; +NA P133E RC; +NIFE30TA91 GT; -ONDA4TAB5 GT; -QUET50TA GT; +SENN-261 GT; -Sulfameth/Trimeth 800/160 Mg GT; +VIT1TABL46 GT
[2020-10-30] MEDS ORDERED: AMLO10TA59 GT (13:22)
[2020-10-30] MEDS ORDERED: IPRA3AMP22 IH (13:22)
[2020-10-30 15:01] LABS: HEMATOCRIT 37.7 % (31.2-41.9); MEAN CORPUSCULAR HEMOGLOBIN 31.3 uug (24.7-32.8); PLATELET COUNT (AUTO) 214 K/uL (179-408)
[2020-10-30 15:07] LABS: CARBON DIOXIDE 32 mmol/L (21-32); CHLORIDE 118 mmol/L (98-107); CREATININE 1.4 mg/dL (0.6-1.3); GLUCOSE 194 mg/dL (74-106); POTASSIUM 3.7 mmol/L (3.5-5.1)
[2020-10-30 15:12] LABS: UREA NITROGEN, BLOOD 93 mg/dL (7-18)
[2020-10-30 15:20] LABS: THYROID STIMULATING HORMONE 1.716 mIU/mL (0.358-3.740)
[2020-10-30 15:21] LABS: ALANINE AMINOTRANSFERASE 21 U/L (14-59); ALKALINE PHOSPHATASE 56 U/L (50-136); ASPARTATE AMINOTRANSFERASE 15 U/L (15-37); BILIRUBIN,DIRECT 0.1 mg/dL (0.0-0.2); BILIRUBIN,TOTAL 0.4 mg/dL (0.2-1.0); TOTAL PROTEIN, SERUM 6.4 g/dL (6.4-8.2)
[2020-10-30] MEDS ORDERED: ALBUTEROL SULFATE 8 GM HFA.AER.AD IH PRN (15:45)
--- NOTE | 2020-10-30 19:30 | NUR ---
Recieved report from TADEO Romano. Pt. here from snf, c/o ams past 3 days. pts. Facility reports pts. baseline is A&Ox1 but talkative but pt has been a&ox1 but not talking as much past 3 days. Pt. requires reorienting to not remove monitors. Otherwise stable and tolerating nasal cannula. Will continue to monitor.
--- NOTE | 2020-10-30 19:30 | NUR ---
Pt has RUE picc line.
[2020-10-30] MEDS ORDERED: ASPIRIN 325 MG TABLET PO ONE (20:00)
--- NOTE | 2020-10-30 20:30 | NUR ---
No changes in pt. condition. No signs of distress. Pt. a&ox1. Pt. does not respond to questions but makes eye contact and occasionally yells. Vss. Will continue to monitor.
[2020-10-30] MEDS ORDERED: ASPIRIN 325 MG TABLET ONE (20:37)
--- NOTE | 2020-10-30 23:50 | NUR ---
Pt.'s oxygen saturation decreasing to 77-88% when on nasal cannula in bed sitting upright at rest, switched to non-rebreather. Pt. oxygen saturation is now 100%.
[2020-10-31] MEDS ORDERED: VANCOMYCIN IV 1,000 MG in IV DEXTROSE 5% 250 ML IV ONE (02:30)
[2020-10-31] MEDS ORDERED: DOXYCYCLINE HYCLATE IV 200 MG in IV DEXTROSE 5% 250 ML IV ONE (02:30)
[2020-10-31] MEDS ORDERED: IV D5W 1000ML 1,000 ML IV ONE (02:30)
[2020-10-31] MEDS ORDERED: PIPERACILLIN SODIUM/TAZOBACTAM 3.375 G in IV DEXTROSE 5% 50 ML IV ONE ×2 (02:30→11:00)
[2020-10-31] MEDS ORDERED: SWABABLE VALVE TRANSFER SET EA MC ONE (03:13)
[2020-10-31] MEDS ORDERED: IOHEXOL 350 100 ML INFUS..BTL ONE (03:13)
[2020-10-31] MEDS ORDERED: IV NORMAL SALINE 250 ML IV ONE (03:13)
[2020-10-31] MEDS ORDERED: DOXYCYCLINE HYCLATE 100 MG INJ IV ONE (03:14)
[2020-10-31] MEDS ORDERED: PIPERACILLIN/TAZOBACTAM/D5W 50 ML IV ONE (03:15)
[2020-10-31] MEDS ORDERED: VANCOMYCIN IV 200 ML ONE (03:15)
[2020-10-31] MEDS ORDERED: ACETAMINOPHEN 325 MG TABLET PO PRN (03:15)
[2020-10-31] MEDS ORDERED: ONDANSETRON 4 MG/2 ML VIAL IV PRN (03:15)
[2020-10-31] MEDS ORDERED: Z GUARD REMEDY PASTE 57 GM TUBE TOP PRN (03:15)
[2020-10-31 03:23] LABS: PHOSPHOROUS 3.5 mg/dL (2.5-4.9)
[2020-10-31 03:47] LABS: ABG BASE EXCESS 6.3 mmol/L; ABG HCO3 30.6 mmol/L; ABG PO2 265.8 mmHg (75.0-100.0); ABG SITE LEFT RADIAL; COHb 0.4 % (0.5-1.5); MetHb 0.3 % (0.0-1.5); O2Hb 99.1 % (94.0-97.0)
--- NOTE | 2020-10-31 03:48 | NUR ---
Pt. taken to CT
[2020-10-31 04:04] LABS: CARBON DIOXIDE 29 mmol/L (21-32); CHLORIDE 122 mmol/L (98-107); CHOLESTEROL 170 mg/dL (<200); CREATININE 1.4 mg/dL (0.6-1.3); GLUCOSE 200 mg/dL (74-106); HDL CHOLESTEROL 31 mg/dL (40-60); POTASSIUM 3.4 mmol/L (3.5-5.1); TRIGLYCERIDES 267 MG/DL (30-150)
[2020-10-31 04:12] LABS: UREA NITROGEN, BLOOD 102 mg/dL (7-18)
--- NOTE | 2020-10-31 04:14 | NUR ---
Jose called to report critical value, sodium is 160 and BUN is 102. Paged [facility] to have Dr. Boss call me so I can notify her.
--- NOTE | 2020-10-31 04:30 | NUR ---
Pt returned from CT
--- NOTE | 2020-10-31 05:27 | NUR ---
Pt. had 1 water bm, pt. changed and made comfortable. Pt. resting in bed, no signs of distress. Sp02 96% on 2L nc.
[2020-10-31 05:30] LABS: *BILIRUBIN,URIN NEGATIVE (NEGATIVE); *BLOOD, URINE 1+ (NEGATIVE); *CLARITY,URINE SLIGHTLY CLOUDY (CLEAR); *COLOR,URINE YELLOW (YELLOW); *KETONES,URINE NEGATIVE (NEGATIVE); *UROBILINOGEN,URINE 0.2 E.U./dl (NORMAL); LEUKOCYTE ESTERASE ,URINE 1+ (NEGATIVE); NITRITE, URINE NEGATIVE (NEGATIVE); PH,URINE 5.5 (5.0-8.0); UGLUCOSE NEGATIVE (NEGATIVE)
[2020-10-31 05:38] LABS: BACTERIA,URINE MANY /HPF (NONE SEEN); RBC,URINE 20-50 /HPF (0-3); SQUAMOUS EPITHELIAL CELL,UR MANY /HPF (NONE SEEN); WBC,URINE TNTC /HPF (0-3)
[2020-10-31 05:55] LABS: HEMATOCRIT 34.2 % (31.2-41.9); MEAN CORPUSCULAR HEMOGLOBIN 31.4 uug (24.7-32.8); MEAN CORPUSCULAR VOLUME 100.1 fL (75.5-95.3); PLATELET COUNT (AUTO) 162 K/uL (179-408)
--- NOTE | 2020-10-31 07:23 | NUR ---
Gave report to TADEO Vieira for pt admission to [facility].
[2020-10-31] MEDS: ALBUTEROL SULFATE 1.25 MG/3 ML NEBU NEB SCH ×5 (07:35→23:40)
[2020-10-31] MEDS: IPRATROPIUM BROMIDE 0.5 MG/2.5 ML NEBU NEB SCH ×5 (07:35→23:40)
[2020-10-31] MEDS: ACETYLCYSTEINE 10% 4ML VIAL NEB SCH ×3 (07:35→23:40)
[2020-10-31] MEDS ORDERED: INSULIN REGULAR, HUMAN 300 UNIT/3 ML VIAL ONE (07:44)
[2020-10-31] MEDS ORDERED: INSULIN REGULAR, HUMAN 300 UNIT/3 ML VIAL SQ ONE (07:45)
[2020-10-31 08:20] VITALS: BP 158/53
--- NOTE | 2020-10-31 08:30 | NUR ---
PT WAS TRANSFERED TO [facility] ROOM #329.
--- NOTE | 2020-10-31 08:45 | NUR ---
admitted from er an 80 yo female with adm dx of hypernatremia, awqake alert but confused x3, with O2 at 3l nc saturating 98%. routine admission assessment. routine admission assessment initiated. will notify MD of admission to the floor
[2020-10-31] MEDS: POTASSIUM CHLORIDE 50 ML IV SCH ×2 (09:41→11:30)
--- NOTE | 2020-10-31 09:45 | NUR ---
RT TX WAS NOT GIVEN PT WAS TRANSFER TO 329 RT NOT AWARE OF MEDICATION WILL RESUME TX AT 1130.
--- NOTE | 2020-10-31 10:00 | NUR ---
SEEN BY DR STANTON FOR NEPHRO FOLLOW-UP SEE NOTES.
[2020-10-31] MEDS ORDERED: IV 1/2NS 1000 ML 1,000 ML IV ONE (15:45)
[2020-10-31] MEDS ORDERED: DEXTROSE 50% 50 ML DISP.SYRIN IV PRN (15:45)
[2020-10-31] MEDS ORDERED: NEUTRA PHOS PACKET PO ONE (16:00)
--- NOTE | 2020-10-31 16:00 | NUR ---
SEEN BY DR CARRENO NOTED LABS WITH ORDER. CONTINUE WITH [facility] MONITORING
[2020-10-31] MEDS ORDERED: NOVASOURCE RENAL 1000 ML LIQUID GT PRN (16:30)
[2020-10-31 16:59] VITALS: BP 116/40
[2020-10-31] MEDS ORDERED: NOVASOURCE RENAL 237 ML LIQUID GT SCH (17:00)
[2020-10-31] MEDS: BLOOD SUGAR DIAGNOSTIC 1 EACH STRIP VI SCH ×2 (17:39→23:36)
[2020-10-31] MEDS: PIPERACILLIN SODIUM/TAZOBACTAM 3.375 G in IV DEXTROSE 5% 50 ML IV SCH ×2 (17:39→23:36)
[2020-10-31] MEDS: INSULIN REGULAR, HUMAN 300 UNIT/3 ML VIAL SQ PRN (17:47)
--- NOTE | 2020-10-31 18:47 | NUR ---
STARTED ON TUBE FEEDING AND IVF 1/2 NS 100 MLS/HR VIA MIDLINE.
[2020-10-31] MEDS ORDERED: HALOPERIDOL 5 MG TABLET PO SCH (21:00)
[2020-10-31] MEDS ORDERED: FLEET ENEMA 133 ML BOTTLE RC SCH (21:00)
[2020-10-31] MEDS ORDERED: CLONIDINE HCL 0.1 MG TABLET GT SCH (21:00)
[2020-10-31 21:55] VITALS: BP 130/68
[2020-11-01 00:24] VITALS: BP 134/45
[2020-11-01] MEDS: INSULIN REGULAR, HUMAN 300 UNIT/3 ML VIAL SQ PRN ×4 (01:54→16:35)
[2020-11-01] MEDS: ALBUTEROL SULFATE 1.25 MG/3 ML NEBU NEB SCH ×6 (03:26→22:40)
[2020-11-01] MEDS: IPRATROPIUM BROMIDE 0.5 MG/2.5 ML NEBU NEB SCH ×6 (03:26→22:40)
[2020-11-01 04:50] VITALS: BP 118/44
[2020-11-01] MEDS: PIPERACILLIN SODIUM/TAZOBACTAM 3.375 G in IV DEXTROSE 5% 50 ML IV SCH (05:44)
[2020-11-01] MEDS: BLOOD SUGAR DIAGNOSTIC 1 EACH STRIP VI SCH ×3 (05:45→16:31)
[2020-11-01 07:41] LABS: HEMATOCRIT 34.1 % (31.2-41.9); MEAN CORPUSCULAR HEMOGLOBIN 32.3 uug (24.7-32.8); MEAN CORPUSCULAR VOLUME 100.4 fL (75.5-95.3); PLATELET COUNT (AUTO) 154 K/uL (179-408)
[2020-11-01 07:49] LABS: CARBON DIOXIDE 28 mmol/L (21-32); CHLORIDE 121 mmol/L (98-107); CREATININE 1.6 mg/dL (0.6-1.3); MAGNESIUM 2.5 mg/dL (1.8-2.4); PHOSPHOROUS 2.9 mg/dL (2.5-4.9); POTASSIUM 2.9 mmol/L (3.5-5.1); UREA NITROGEN, BLOOD 72 mg/dL (7-18)
[2020-11-01] MEDS: ACETYLCYSTEINE 10% 4ML VIAL NEB SCH ×3 (07:49→22:40)
--- NOTE | 2020-11-01 08:00 | NUR ---
IN BED WITH EYES CLOSE NO SS OF DISTRESS WITH O2 AT 2L NC. AT BEDSIDE AT ALL TIMES VERY SUPPORTIVE WITH CARE. CONTINUE PLAN OF CARE. SR ON MONITOR
[2020-11-01 08:39] LABS: GLUCOSE 353 mg/dL (74-106)
[2020-11-01] MEDS: FOLIC ACID/VITAMIN B COMP W-C TABLET GT SCH (08:39)
[2020-11-01] MEDS: VALPROIC ACID 250 MG/5 ML LIQUID UDC GT SCH ×2 (08:39→21:43)
[2020-11-01] MEDS: ASCORBIC ACID 250 MG TABLET GT SCH (08:39)
[2020-11-01] MEDS: AMLODIPINE 10 MG TABLET GT SCH (08:40)
[2020-11-01] MEDS: APIXABAN 2.5 MG TABLET GT SCH ×2 (08:41→16:31)
[2020-11-01] MEDS: FAMOTIDINE 20 MG TABLET GT SCH (08:41)
[2020-11-01] MEDS ORDERED: VALPROIC ACID 250 MG CAPSULE PO SCH (09:00)
[2020-11-01] MEDS ORDERED: FLEET ENEMA 133 ML BOTTLE RC PRN (09:35)
[2020-11-01] MEDS ORDERED: BISACODYL 10 MG SUPP.RECT RC PRN (09:45)
[2020-11-01] MEDS ORDERED: VANCOMYCIN IV 1,000 MG in IV DEXTROSE 5% 250 ML IV ONE (10:00)
[2020-11-01] MEDS ORDERED: POTASSIUM CHLORIDE 20 MEQ POWDER PACKET GT ONE ×2 (10:00→14:00)
[2020-11-01 12:00] VITALS: BP 138/45
[2020-11-01] MEDS: CEFEPIME HCL 1 G in IV DEXTROSE 5% 50 ML IV SCH (12:09)
[2020-11-01] MEDS: IV 1/2NS 1000 ML 1,000 ML IV SCH (13:24)
--- NOTE | 2020-11-01 13:59 | NUR ---
RESTING COMFORTABLY IN BED NO SS OF PAIN OR ACUTE DISTRESS. CONTINUIE WITH PHYSICAL THERAPY TOLERATED SEE NOTES
[2020-11-01 16:00] VITALS: BP 140/49
[2020-11-01] MEDS: SENNOSIDES 1 TABLET GT SCH (16:28)
[2020-11-01] MEDS ORDERED: VANCOMYCIN IV 1,000 MG in IV DEXTROSE 5% 250 ML IV SCH (19:00)
[2020-11-01 21:01] VITALS: BP 126/47
[2020-11-02] MEDS: BLOOD SUGAR DIAGNOSTIC 1 EACH STRIP VI SCH ×4 (00:37→17:45)
[2020-11-02] MEDS: IV 1/2NS 1000 ML 1,000 ML IV SCH (00:43)
[2020-11-02] MEDS: INSULIN REGULAR, HUMAN 300 UNIT/3 ML VIAL SQ PRN ×4 (00:46→17:48)
[2020-11-02] MEDS: ALBUTEROL SULFATE 1.25 MG/3 ML NEBU NEB SCH ×6 (02:40→22:40)
[2020-11-02] MEDS: IPRATROPIUM BROMIDE 0.5 MG/2.5 ML NEBU NEB SCH ×6 (02:40→22:40)
[2020-11-02 04:45] VITALS: BP 144/51
[2020-11-02 06:29] LABS: HEMATOCRIT 31.9 % (31.2-41.9); MEAN CORPUSCULAR HEMOGLOBIN 32.4 uug (24.7-32.8); MEAN CORPUSCULAR VOLUME 98.3 fL (75.5-95.3); PLATELET COUNT (AUTO) 138 K/uL (179-408)
[2020-11-02 07:03] LABS: BILIRUBIN,TOTAL 0.3 mg/dL (0.2-1.0); CREATININE 1.1 mg/dL (0.6-1.3); MAGNESIUM 2.3 mg/dL (1.8-2.4); PHOSPHOROUS 2.1 mg/dL (2.5-4.9); POTASSIUM 4.5 mmol/L (3.5-5.1); TOTAL PROTEIN, SERUM 5.5 g/dL (6.4-8.2); VANCOMYCIN,RANDOM 14.4 ug/mL (18.0-26.0)
[2020-11-02] MEDS: ACETYLCYSTEINE 10% 4ML VIAL NEB SCH ×3 (07:35→22:40)
--- NOTE | 2020-11-02 07:38 | NUR ---
Received patient asleep. On room air. No signs of acute distress. call light within reach. bed alarm on. will continue to monitor.
[2020-11-02] MEDS: ASCORBIC ACID 250 MG TABLET GT SCH (08:32)
[2020-11-02] MEDS: VALPROIC ACID 250 MG/5 ML LIQUID UDC GT SCH ×2 (08:32→22:30)
[2020-11-02] MEDS: FOLIC ACID/VITAMIN B COMP W-C TABLET GT SCH (08:33)
[2020-11-02] MEDS: FAMOTIDINE 20 MG TABLET GT SCH (08:33)
[2020-11-02] MEDS: AMLODIPINE 10 MG TABLET GT SCH (08:34)
[2020-11-02] MEDS: APIXABAN 2.5 MG TABLET GT SCH ×2 (08:36→17:11)
[2020-11-02] MEDS: IV D5W 1000ML 1,000 ML IV PRN (10:13)
[2020-11-02 11:11] VITALS: BP 107/88
[2020-11-02] MEDS: CEFEPIME HCL 1 G in IV DEXTROSE 5% 50 ML IV SCH (12:02)
[2020-11-02] MEDS ORDERED: VANCOMYCIN IV 750 MG in IV DEXTROSE 5% 250 ML IV SCH (14:00)
[2020-11-02 15:30] VITALS: BP 107/49
[2020-11-02] MEDS ORDERED: NEUTRA PHOS PACKET GT ONE (16:00)
[2020-11-02] MEDS: SENNOSIDES 1 TABLET GT SCH (17:54)
[2020-11-02] MEDS ORDERED: MICAFUNGIN SODIUM 100 MG in IV NORMAL SALINE 100 ML IV SCH (18:00)
--- NOTE | 2020-11-02 19:29 | NUR ---
Patient resting in bed. on room air. no signs of acute distress. compliant with medications and care. bed locked and in low position. call light within reach. safety measures provided. will endorse to incoming shift for continuity of care.
[2020-11-02 20:12] VITALS: BP 125/41
[2020-11-03] MEDS ORDERED: CEFEPIME HCL 1 G in IV DEXTROSE 5% 50 ML IV SCH
[2020-11-03] MEDS ORDERED: MELA5TAB PO (00:31)
[2020-11-03] MEDS: IV D5W 1000ML 1,000 ML IV PRN ×2 (00:41→09:56)
[2020-11-03] MEDS: INSULIN REGULAR, HUMAN 300 UNIT/3 ML VIAL SQ PRN ×3 (01:15→12:36)
[2020-11-03] MEDS: IPRATROPIUM BROMIDE 0.5 MG/2.5 ML NEBU NEB SCH ×4 (02:40→15:51)
[2020-11-03] MEDS: ALBUTEROL SULFATE 1.25 MG/3 ML NEBU NEB SCH ×4 (02:40→15:51)
[2020-11-03 04:43] VITALS: BP 120/43
[2020-11-03] MEDS: BLOOD SUGAR DIAGNOSTIC 1 EACH STRIP VI SCH ×3 (06:48→12:09)
[2020-11-03 06:58] LABS: HEMATOCRIT 33.1 % (31.2-41.9); MEAN CORPUSCULAR HEMOGLOBIN 31.5 uug (24.7-32.8); MEAN CORPUSCULAR VOLUME 98.2 fL (75.5-95.3); PLATELET COUNT (AUTO) 142 K/uL (179-408)
--- NOTE | 2020-11-03 07:03 | NUR ---
RECEIVED PT IN ROOM ASLEEP PT PT HAS GTUBE FEEDING TOLERATING WELL NO SIGNS OF DISTENTION NOTED. PT HS BLOOD SUGAR 314 GIVEN 8 UNITS OF REGULAR INSULIN NO SIGNS OF DIABETIC REACTION NOTED. PT AM BLOOD SUGAR 368 WILL ENDORSE TO AM NURSE. NO SIGNS OF DIABETIC REACTION NOTED. PT HAD A LARGE STOOL THIS AM. WILL ENDORSE TO AM NURSE.
[2020-11-03 07:09] LABS: MAGNESIUM 2.1 mg/dL (1.8-2.4); POTASSIUM 3.7 mmol/L (3.5-5.1)
[2020-11-03] MEDS: ACETYLCYSTEINE 10% 4ML VIAL NEB SCH ×2 (08:15→15:51)
[2020-11-03] MEDS: AMLODIPINE 10 MG TABLET GT SCH (09:00)
[2020-11-03] MEDS: ASCORBIC ACID 250 MG TABLET GT SCH (09:40)
[2020-11-03] MEDS: VALPROIC ACID 250 MG/5 ML LIQUID UDC GT SCH (09:40)
[2020-11-03] MEDS: FAMOTIDINE 20 MG TABLET GT SCH (09:40)
[2020-11-03] MEDS: APIXABAN 2.5 MG TABLET GT SCH (09:40)
[2020-11-03] MEDS: FOLIC ACID/VITAMIN B COMP W-C TABLET GT SCH (09:40)
[2020-11-03 11:29] VITALS: BP 110/33
[2020-11-03] MEDS ORDERED: MICA100V IV (12:59)
[2020-11-03] MEDS ORDERED: VALP250S22 GT (12:59)
[2020-11-03 15:28] VITALS: BP 134/52
--- NOTE | 2020-11-03 17:10 | NUR ---
Discharged patient to [facility]. Patient is awake, oriented to self, not in any form of distress, on room air. She denies any pain or discomfort at this time. Vital signs stable. Patient kept clean and comfortable. Sacral wound dressing done as ordered. G-tube in place and patent. Discharge photos taken. ID band removed. Report given to Teddy from [facility]. Patient picked up by ambulance.
== END 2020-11-03 17:10 | DRG 682 ==
LOC: ER 12:42 → TELE-TD3 10-31 07:50 → TELE3 10-31 19:37 → MEDSURG3 11-01 17:26
PROVIDERS: ADMIT Student in an Organized Health Care Education/Training Program; ATTEND Student in an Organized Health Care Education/Training Program
DX: N17.0 Acute kidney failure with tubular necrosis (principal); G93.41 Metabolic encephalopathy; I21.A1 Myocardial infarction type 2; J96.91 Respiratory failure, unspecified with hypoxia; E87.0 Hyperosmolality and hypernatremia; E44.0 Moderate protein-calorie malnutrition; T17.890A Other foreign object in other parts of respiratory tract causing asphyxiation, initial encounter; K86.2 Cyst of pancreas; N39.0 Urinary tract infection, site not specified; D64.9 Anemia, unspecified; D69.6 Thrombocytopenia, unspecified; D73.89 Other diseases of spleen; E11.22 Type 2 diabetes mellitus with diabetic chronic kidney disease; E11.65 Type 2 diabetes mellitus with hyperglycemia; F03.90 Unspecified dementia, unspecified severity, without behavioral disturbance, psychotic disturbance, mood disturbance, and anxiety; F20.9 Schizophrenia, unspecified; G40.909 Epilepsy, unspecified, not intractable, without status epilepticus; I48.91 Unspecified atrial fibrillation; I67.2 Cerebral atherosclerosis; S30.0XXA Contusion of lower back and pelvis, initial encounter; X58.XXXA Exposure to other specified factors, initial encounter; Y93.9 Activity, unspecified; Y92.129 Unspecified place in nursing home as the place of occurrence of the external cause; N18.9 Chronic kidney disease, unspecified; R13.10 Dysphagia, unspecified; R47.02 Dysphasia; Z79.01 Long term (current) use of anticoagulants; Z79.4 Long term (current) use of insulin; Z86.16 Personal history of COVID-19; Z20.822 Contact with and (suspected) exposure to COVID-19; Z86.73 Personal history of transient ischemic attack (TIA), and cerebral infarction without residual deficits; Z93.1 Gastrostomy status; E86.0 Dehydration
CPT/HCPCS: 36415; 36600; 70030-TC; 70450; 71045; 71275; 83605; 83735; 84100; 84443; 85025; 85730; 87040; 87086; 93005; 93307; 94640; 94664; A4663; A6209; G0378; J0692; J1815; J2248; J2543; J3370; J3480; J3490; J3535; J3590; J7030; J7050; J7060; J7070; Q9967

== ENCOUNTER 2020-11-10 04:04 | Inpatient (IN) | payer MEDICARE, OTHER ==
[~2020-11-10] VITALS: Ht 162.6 cm; Wt 65.0 kg
[2020-11-10] VITALS (33 sets, daily range): BP systolic 86–132; BP diastolic 38–81
[~2020-11-10 04:04] MED LIST changes: +AMLO10TA59 GT; +IPRA3AMP22 IH; +MICA100V IV; -NIFE30TA91 GT; +VALP250S22 GT
--- NOTE | 2020-11-10 04:12 | NUR ---
Patient BIB RA 100 from [facility] for low 02 sat. Per report patient 02 sat on the field was in the 80's. Patient upon arrival confused with RA 02 at 81%. a/o X1, breathing labored. Responsive to verbal and tactile stimuli.
--- NOTE | 2020-11-10 04:13 | NUR ---
Mary Kay Lester at bedside, MSE in progress.
[2020-11-10] MEDS ORDERED: CEFTRIAXONE 1 G in IV DEXTROSE 5% 50 ML IV ONE (04:15)
--- NOTE | 2020-11-10 04:20 | NUR ---
RT and Lab at bedside.
--- NOTE | 2020-11-10 04:22 | NUR ---
XRAY AT BEDSIDE.
[2020-11-10] MEDS ORDERED: CEFTRIAXONE /D5W 50ML IVPB **ER PYXIS IV ONE (04:41)
[2020-11-10] MEDS ORDERED: VALP250S4 GT (04:43)
[2020-11-10 04:44] LABS: HEMATOCRIT 32.9 % (31.2-41.9); MEAN CORPUSCULAR HEMOGLOBIN 31.9 uug (24.7-32.8); MEAN CORPUSCULAR VOLUME 97.2 fL (75.5-95.3); PLATELET COUNT (AUTO) 140 K/uL (179-408)
[2020-11-10] MEDS ORDERED: ENOXAPARIN SODIUM 60 MG/0.6 ML DISP.SYRIN SQ ONE ×2 (04:45→05:14)
[2020-11-10 04:46] LABS: ABG BASE EXCESS 4.1 mmol/L; ABG HCO3 28.3 mmol/L; ABG PCO2 40.9 mmHg (35.0-45.0); ABG PH 7.458 (7.350-7.450); ABG PO2 64.1 mmHg (75.0-100.0); ABG SITE LEFT RADIAL; COHb 0.6 % (0.5-1.5); MetHb 0.1 % (0.0-1.5); O2Hb 91.9 % (94.0-97.0)
[2020-11-10 04:52] LABS: CREATININE 1.1 mg/dL (0.6-1.3)
[2020-11-10 04:52] LABS: *BILIRUBIN,URIN NEGATIVE (NEGATIVE); *COLOR,URINE YELLOW (YELLOW); *KETONES,URINE NEGATIVE (NEGATIVE); *UROBILINOGEN,URINE 0.2 E.U./dl (NORMAL); LEUKOCYTE ESTERASE ,URINE TRACE (NEGATIVE); NITRITE, URINE NEGATIVE (NEGATIVE); PH,URINE 5.5 (5.0-8.0); UGLUCOSE NEGATIVE (NEGATIVE)
--- NOTE | 2020-11-10 04:57 | NUR ---
Patient intubated in ER by DR. Berger. Size 7.5 ETT 22cm at the lip with following settings charted on mechanical vent notes. ETT secured by anchor fast. Suction thick, pale yellow secretions. Sputum sample collected and sent to lab. Alarms on, audible, and within parameters. After xray, withdrew tube to 21cm at the lip per Dr. Berger orders. Pt tolerating current vent settings well at this time. Ambubag at bedside. Will continue to monitor.
--- NOTE | 2020-11-10 04:57 | NUR ---
RT and Dr. Berger at bedside. Patient intubated successfully. Vitals stable, pt in no distress. ET tube size 7.5 and 22cm at lip. Vent Settings TV 500 FiO2 100% PEEP 5 A/C 14
[2020-11-10 05:02] LABS: *BLOOD, URINE TRACE (NEGATIVE); *CLARITY,URINE HAZY (CLEAR)
[2020-11-10 05:05] LABS: BILIRUBIN,DIRECT 0.1 mg/dL (0.0-0.2); BILIRUBIN,TOTAL 0.3 mg/dL (0.2-1.0); TOTAL PROTEIN, SERUM 6.6 g/dL (6.4-8.2)
--- NOTE | 2020-11-10 05:06 | NUR ---
Xray at bedside.
[2020-11-10 05:07] LABS: BACTERIA,URINE MODERATE /HPF (NONE SEEN); SQUAMOUS EPITHELIAL CELL,UR MODERATE /HPF (NONE SEEN)
[2020-11-10 05:08] LABS: URINE AMORPHOUS URATE FEW /HPF
[2020-11-10] MEDS ORDERED: SUCCINYLCHOLINE CHLORIDE 200 MG/10 ML VIAL IV ONE (05:15)
[2020-11-10] MEDS ORDERED: ETOMIDATE 20 MG/10 ML VIAL IV ONE ×2 (05:15→05:30)
[2020-11-10] MEDS ORDERED: PROPOFOL 100 ML IV SCH (05:15)
[2020-11-10] MEDS ORDERED: PROPOFOL 100 ML ONE (05:25)
[2020-11-10] MEDS ORDERED: IV NORMAL SALINE 1000 ML BAG IV ONE ×2 (05:30→05:45)
[2020-11-10] MEDS ORDERED: levoFLOXacin 750 MG/D5W 150 ML PIGGYBACK IV ONE (05:45)
--- NOTE | 2020-11-10 05:50 | NUR ---
KIERA CALLED, DR. SHAW PAGED.
[2020-11-10 06:07] LABS: ABG BASE EXCESS 4.9 mmol/L; ABG HCO3 27.1 mmol/L; ABG PH 7.545 (7.350-7.450); ABG PO2 428.1 mmHg (75.0-100.0); ABG SITE RIGHT RADIAL; ABG TOTAL HEMOGLOBIN 11.9 G/dL (12.0-16.0); COHb 0.3 % (0.5-1.5); MetHb 0.2 % (0.0-1.5); O2Hb 99.3 % (94.0-97.0); VENT MODE VENT - A/C; VT, ABG 500 mL
[2020-11-10] MEDS ORDERED: levoFLOXacin 750MG/D5W 150 ML IV ONE (06:12)
--- NOTE | 2020-11-10 06:19 | NUR ---
ABG DONE. RESULTS GIVEN TO . SETTINGS CHANGED (TITRATED FiO2 TO 70% AND RATE TO 10) PER VERBAL ORDER FROM . PATIENT IS TOLERATING CURRENT VENTILATOR SETTINGS WITH NO SOB NOTED AT THIS TIME.
--- NOTE | 2020-11-10 06:20 | NUR ---
DR. ROSALIND SAGE.
--- NOTE | 2020-11-10 06:55 | NUR ---
REPAGED DR. BOYER.
--- NOTE | 2020-11-10 07:08 | NUR ---
GAVE REPORT TO TADEO WAY.
--- NOTE | 2020-11-10 07:17 | NUR ---
Received patient sedated on Diprivan drip 30 mcg/kg/min. Removed restraints, however, patient attempted to reach up towards ET tube, remains on bilateral soft wrist restraints until adequate sedation is achieved. VSS. Vent setting remains at AC 14, TV 500, FiO2 100%, PEEP 5, SpO2 100% Addendum: 11/10/20 at 0929 by STEVEN Vent setting upon receiving patient: AC 10 TV 500 FiO2 100% PEEP 5
--- NOTE | 2020-11-10 07:20 | NUR ---
Diprivan drip increased to 40 mcg/kg/min
--- NOTE | 2020-11-10 07:21 | NUR ---
Second 1000 ml NS bolus now infusing as ordered and endorsed.
--- NOTE | 2020-11-10 07:54 | NUR ---
paged [facility] for CCU admission - Dr. Padron ribbon cutter, awaiting callback.
--- NOTE | 2020-11-10 08:15 | NUR ---
Noted moderate thick, yellow secretions upon suctioning ET tube
--- NOTE | 2020-11-10 09:17 | NUR ---
Repaged Dr Padron for admission panel call
--- NOTE | 2020-11-10 09:24 | NUR ---
Paged [facility] physician for admission panel.
--- NOTE | 2020-11-10 09:53 | NUR ---
To be admitted to CCU-3, Lokesh PIEDRA will callback for report. Addendum: 11/10/20 at 0955 by STEVEN under the care of Haroon PATEL
--- NOTE | 2020-11-10 10:55 | NUR ---
Report given to Arthur PIEDRA
--- NOTE | 2020-11-10 11:15 | NUR ---
recieved pt. from E.R. via gurney s/p intubation and atteched to ventilator. Sedated with propofol drip. Increased from 40/mg/kg up to 50 mcg/ mcg / kg by the charge nurse. Pt. moving slightly . Bilateral breath sounds ascultated A/P. 80 year old female elderly , a full code, admitted with short of breath. assistant chief train dispatcher shows sinua badycardia to sinus rhythm with rare P{.V.C s. Saturation at 100 % at all times. Propofol drip infusing at 50 / mcg / kg / minute to rt. arm midline. Win cath. intact, draining cloear yellow urine. Generalized edema present. B/ p is normotensive.
--- NOTE | 2020-11-10 11:26 | NUR ---
Transferred to CCU-3 on monitor with RT
[2020-11-10] MEDS ORDERED: ACETAMINOPHEN 650 MG SUPP.RECT RC PRN (11:30)
[2020-11-10] MEDS ORDERED: ONDANSETRON 4 MG/2 ML VIAL IV PRN (11:30)
[2020-11-10] MEDS ORDERED: PROPOFOL 100 ML IV PRN ×2 (11:45→12:00)
[2020-11-10] MEDS ORDERED: PIPERACILLIN SODIUM/TAZOBACTAM 3.375 G in IV DEXTROSE 5% 50 ML IV ONE (13:00)
[2020-11-10] MEDS ORDERED: DEXTROSE 50% 50 ML DISP.SYRIN IV PRN (13:00)
[2020-11-10] MEDS: BLOOD SUGAR DIAGNOSTIC 1 EACH STRIP VI SCH ×6 (13:00→23:45)
[2020-11-10] MEDS: POTASSIUM CHLORIDE 50 ML IV SCH ×4 (13:33→21:30)
[2020-11-10] MEDS: IV 1/2NS 1000 ML 1,000 ML IV PRN (14:33)
--- NOTE | 2020-11-10 16:01 | NUR ---
Dr. sheridan was here earlier to examine pt. Saturation W.Esperanza Russell.S.S.
--- NOTE | 2020-11-10 19:20 | NUR ---
received report , patient is arousable to deep pain , no spontaneous eye opening, vent setting of ac 10 tv 500 p5 , 40 fio2 % , propofol at 50 mcg , 1/2 ns at 100 ml , cesar and iv intact . no fever notred , gt clamped
[2020-11-10] MEDS: PIPERACILLIN SODIUM/TAZOBACTAM 3.375 G in IV DEXTROSE 5% 100 ML IV SCH (20:39)
[2020-11-10] MEDS: PROPOFOL 100 ML IV PRN (22:03)
[2020-11-10] MEDS: INSULIN REGULAR, HUMAN 300 UNIT/3 ML VIAL SQ PRN (23:46)
[2020-11-11] VITALS (37 sets, daily range): BP systolic 91–142; BP diastolic 36–66
--- NOTE | 2020-11-11 00:27 | NUR ---
PT ON CONT AMANDA VENT WITH 7.5 ET/TUBE , 22LIP, WITH ANCHOR FAST IN PLACE AND SECURED, VENT SETTINGS, A/C 10, 500ML PEEP 5, 40%, MOSTLY WITH CONTROLLED VENTILATION, SUCTION ET/TUBE SLIGHTLY BLOODY TINGE , CLEARING UP PINKISH TINGE WITH NS LAVAGE, NURSE AWARE, NO VENT CHANGES MADE AT THIS TIME, ALL VENT ALARMS OK. D NATALIE FORBES Addendum: 11/11/20 at 0030 by NIOKLE HENDRICKS Amended: Links added. Addendum: 11/11/20 at 0614 by NIKOLE HENDRICKS CORRECTION , PATIENT ON PB 840 VOL VENT , ABG X 1 . D NATALIE FORBES
[2020-11-11] MEDS: IV 1/2NS 1000 ML 1,000 ML IV PRN ×2 (02:44→13:52)
[2020-11-11] MEDS: PROPOFOL 100 ML IV PRN ×6 (02:44→23:48)
[2020-11-11] MEDS: PIPERACILLIN SODIUM/TAZOBACTAM 3.375 G in IV DEXTROSE 5% 100 ML IV SCH ×3 (04:28→19:55)
[2020-11-11 05:50] LABS: ABG BASE EXCESS 2.1 mmol/L; ABG HCO3 24.2 mmol/L; ABG PCO2 30.9 mmHg (35.0-45.0); ABG PH 7.512 (7.350-7.450); ABG PO2 75.8 mmHg (75.0-100.0); ABG SITE LEFT RADIAL; VENT MODE VENT - A/C; VT, ABG 500 mL
--- NOTE | 2020-11-11 06:00 | NUR ---
ac 12 tv 550 , p 5 fio2 40 % , cool to touch , gt clamped , propofol at 50 mcg , 1/2 ns 100 ml , iv and cesar intact bs 78 sbrady 54
[2020-11-11] MEDS: BLOOD SUGAR DIAGNOSTIC 1 EACH STRIP VI SCH ×3 (06:22→18:19)
[2020-11-11] MEDS: INSULIN REGULAR, HUMAN 300 UNIT/3 ML VIAL SQ PRN (06:22)
[2020-11-11 06:27] LABS: BILIRUBIN,TOTAL 0.4 mg/dL (0.2-1.0); MAGNESIUM 2.4 mg/dL (1.8-2.4); PHOSPHOROUS 2.7 mg/dL (2.5-4.9); POTASSIUM 4.2 mmol/L (3.5-5.1)
--- NOTE | 2020-11-11 07:05 | NUR ---
Received pt on ventilator A/C12, ETT 7.5, 22LL Tv550 Peep +5, and FIO2 40%. on propofol running at 50mcg/kg/min. no need of vacation sedation pt. noted to be fully awake and attempting to reach ETT. coughing and grimacing. called and orders to go above 50mcg/kg/min on propofol for proper sedation obtained. G-tube claped. cesar to gravity. Cardiac-small in sinus bradycardia. sbp borderline in the 90's. Will continue with care plan.
[2020-11-11 07:13] LABS: THYROID STIMULATING HORMONE 2.059 mIU/mL (0.358-3.740)
[2020-11-11] MEDS: ENOXAPARIN SODIUM 60 MG/0.6 ML DISP.SYRIN SQ SCH (08:06)
[2020-11-11] MEDS: PANTOPRAZOLE SODIUM 40 MG VIAL IV SCH (08:06)
--- NOTE | 2020-11-11 08:44 | NUR ---
Pulmonary services, Dr. Erazo in the unit to examine pt. report given and at this time He changed ventilator to tv.400.
[2020-11-11 08:52] LABS: HEMATOCRIT 26.5 % (31.2-41.9); MEAN CORPUSCULAR HEMOGLOBIN 32.2 uug (24.7-32.8); MEAN CORPUSCULAR VOLUME 99.6 fL (75.5-95.3); PLATELET COUNT (AUTO) 91 K/uL (179-408)
[2020-11-11] MEDS ORDERED: ACETYLCYSTEINE 10% 4ML VIAL NEB SCH (09:30)
[2020-11-11] MEDS ORDERED: NOREPINEPHRINE BITARTRATE 8 MG in IV NORMAL SALINE 242 ML IV PRN (09:45)
--- NOTE | 2020-11-11 10:45 | NUR ---
Attending Tolu Hdz called to be notified that patient is been sustaining sinus bradycardia in the mid-to low 40's.
--- NOTE | 2020-11-11 12:00 | NUR ---
Attending Tolu Patiño in the unit to see and examine pt. report given as well as informed that pt. is been SB in the mid-40's on/off. At this time He consulted Dr. Hector and orders to start pt. on levophed to increase heart rate. pt. started at 1230 but pt. remains on 45/50's sinus mary.
--- NOTE | 2020-11-11 12:45 | NUR ---
Nephrology services, Dr. Villagran in the unit to see and examine pt. report given.
--- NOTE | 2020-11-11 12:51 | NUR ---
A call from Dr. Hector report given and orders to start pt. on dopamine.
[2020-11-11] MEDS ORDERED: DOPamine IV DRIP 400 MG/250ML 250 ML IV PRN ×2 (13:00→17:45)
[2020-11-11] MEDS: ALBUTEROL SULFATE 1.25 MG/3 ML NEBU NEB SCH ×2 (13:18→20:47)
[2020-11-11] MEDS: IPRATROPIUM BROMIDE 0.5 MG/2.5 ML NEBU NEB SCH ×2 (13:18→20:45)
[2020-11-11] MEDS ORDERED: SUCCINYLCHOLINE CHLORIDE 200 MG/10 ML VIAL MC ONE (13:29)
[2020-11-11] MEDS ORDERED: ETOMIDATE 20 MG/10 ML VIAL MC ONE (13:29)
--- NOTE | 2020-11-11 17:39 | NUR ---
A call from Crystal Slicer Dr. Hector at this time He was informed that dopamine 10mcg/kg/min and orders to titrate to maintain heart rate greater than 50's dopamine back down to 5mcg/kg/min.
--- NOTE | 2020-11-11 18:07 | NUR ---
Left pt on ventilator A/C22, ETT 7.5, 22LL Tv400 Peep +5, and FIO2 40%. on propofol running at 55mcg/kg/min. adequately sedated. Cardiac small pt. currently on dopamine with heart rate above 50's as ordered G-tube clamped. cesar to gravity with adequate urine output. Safety measures implemented at all time no injury sustained during shift. Will continue with care plan and endorse care to incoming shift.
[2020-11-11] MEDS: ACETYLCYSTEINE 10% 4ML VIAL NEB SCH (20:46)
[2020-11-12] VITALS (30 sets, daily range): BP systolic 105–149; BP diastolic 48–85
[2020-11-12] MEDS: BLOOD SUGAR DIAGNOSTIC 1 EACH STRIP VI SCH ×4 (00:35→18:07)
[2020-11-12] MEDS: INSULIN REGULAR, HUMAN 300 UNIT/3 ML VIAL SQ PRN ×2 (00:37→18:09)
[2020-11-12] MEDS: IPRATROPIUM BROMIDE 0.5 MG/2.5 ML NEBU NEB SCH ×4 (01:37→22:06)
[2020-11-12] MEDS: ALBUTEROL SULFATE 1.25 MG/3 ML NEBU NEB SCH ×4 (01:37→22:07)
--- NOTE | 2020-11-12 03:50 | NUR ---
PATIENT ON CONT PB 840 VENT WITH 7.5 ET/TUBE IN PLACE AND SECURED WITH ANCHOR FAST, SUCTIONED SLIGHT BLOODY TINGE SECRETIONS WITH NS LAVAGE, CHANGE HME AND YUE CASTRO INLINE GIVEN WITH Q12 MUCOMYST, ALL VENT ALARMS GOOD, PT to BE WEANED ON CPAP TRIAL AT 06:00 , NURSE AWARE TO TURN DOWN SEDATION, Payam ESTRADA RCP Addendum: 11/12/20 at 0353 by NIKOLE ESTRADA RT Amended: Links added.
[2020-11-12] MEDS: PIPERACILLIN SODIUM/TAZOBACTAM 3.375 G in IV DEXTROSE 5% 100 ML IV SCH ×2 (04:14→11:39)
[2020-11-12 05:43] LABS: HEMATOCRIT 30.6 % (31.2-41.9); MEAN CORPUSCULAR HEMOGLOBIN 31.4 uug (24.7-32.8); MEAN CORPUSCULAR VOLUME 95.2 fL (75.5-95.3); PLATELET COUNT (AUTO) 125 K/uL (179-408)
[2020-11-12 05:49] LABS: MAGNESIUM 2.2 mg/dL (1.8-2.4); PHOSPHOROUS 3.7 mg/dL (2.5-4.9)
[2020-11-12] MEDS: IV 1/2NS 1000 ML 1,000 ML IV PRN (06:44)
--- NOTE | 2020-11-12 06:55 | NUR ---
Patient placed on CPAP mode @0550 after having been weaned off sedation. patient is tolerating CPAP mode very well with own rate of 25, Vt 350+. Patient did go into a brief bigeminal rhythm after being weaned off the propofol, however the Dopamine drip was still running, so this was turned off and the bigeminal rhythm immediately resolved to a normal sinus rhythm. ABGs to be drawn @0800. Patient remains in stable condition no SOB or signs of distress. Patient is calm and cooperative.
--- NOTE | 2020-11-12 07:00 | NUR ---
Received pt. on CPAP trial started this morning at 0550 completely off sedation. PT tolerating CPAP well with no tachypnea or sob., Cardiac small as reported Patient had a brief bigeminal rhythm as reported non-sustained, while on Dopamine. Dopamine off and rhythm converted to NSR as reported. Neuro-small patient fully awake, alert follows commands. Win to gravity. IV ML to RUE patent.
[2020-11-12] MEDS: ACETYLCYSTEINE 10% 4ML VIAL NEB SCH ×2 (07:28→22:07)
--- NOTE | 2020-11-12 08:00 | NUR ---
Pulmonary services, Dr. Dunia Mack in the unit to examine patient report given and orders to extubate pt. received after reviewed latest ABG's
--- NOTE | 2020-11-12 08:10 | NUR ---
Pulmonary services, Dr. Duque in the unit to see and examine pt. and after ABG results and pt. been on CPAP trial for the last two hours with no respiratory distress saturation in the 97-100%. Orders to extubate pt. received. Extubation done by RT Vo at 0825 patient placed on NC 5liters. pt. tolerating well no distress will continue to monitor.
[2020-11-12 08:15] LABS: ABG BASE EXCESS -0.5 mmol/L; ABG HCO3 22.8 mmol/L; ABG PCO2 32.2 mmHg (35.0-45.0); ABG PH 7.468 (7.350-7.450); ABG PO2 123.6 mmHg (75.0-100.0); ABG SITE RIGHT RADIAL; ABG TOTAL HEMOGLOBIN 8.9 G/dL (12.0-16.0); COHb 1.2 % (0.5-1.5); MetHb 0.4 % (0.0-1.5); O2Hb 97.1 % (94.0-97.0); VENT MODE VENT - CPAP - PS 7
[2020-11-12] MEDS: PANTOPRAZOLE SODIUM 40 MG VIAL IV SCH (09:09)
[2020-11-12] MEDS: ENOXAPARIN SODIUM 60 MG/0.6 ML DISP.SYRIN SQ SCH (09:10)
[2020-11-12] MEDS: POTASSIUM CHLORIDE 50 ML IV SCH ×8 (11:27→23:44)
--- NOTE | 2020-11-12 11:45 | NUR ---
Nephrology services, Dr. Moore in the unit to see and examine pt. report given no new orders received.
--- NOTE | 2020-11-12 12:45 | NUR ---
Cardiology services, Dr. Hector in the unit to see and examine pt. report given. Orders to stop IV fluids received.
[2020-11-12] MEDS ORDERED: FUROSEMIDE 40 MG/4 ML VIAL IV ONE ×2 (13:15→23:00)
[2020-11-12] MEDS: VANCOMYCIN IV 1,000 MG in IV DEXTROSE 5% 250 ML IV SCH (15:38)
--- NOTE | 2020-11-12 18:44 | NUR ---
Left pt. on bed resting comfortably, Resp: 2L NC. 5L. saturation within desire limits, with large production of thick sputum and requiring deep suctioning. Remains NPO. with no n/v/or diarrhea. One large bm today. Win to gravity with a total of 2278 cc clear yellow urine. ML patent and tko pt. received potassium replacement today. No new pressure sore, safety measures observed, no injury sustained. Will endorse to incoming shift.
--- NOTE | 2020-11-12 19:05 | NUR ---
Received patient in bed resting comfortably. Patient is able to be awoken by name. patient is on 5L via NC with a heavy productive cough that she seems to be able to clear somewhat effectively, but may require deep suctioning to assist with secretions. Remains NPO. with no n/v/or diarrhea. Win to gravity with clear yellow urine.
[2020-11-12] MEDS: CEFEPIME HCL 1 G in IV DEXTROSE 5% 50 ML IV SCH (19:54)
--- NOTE | 2020-11-12 22:41 | NUR ---
patient titrated down to 3L on NC, tolerating well, SAT 100%. all other VS remain stable. No SOB or signs of distress.
[2020-11-13] VITALS (11 sets, daily range): BP systolic 100–137; BP diastolic 24–91
[2020-11-13] MEDS: BLOOD SUGAR DIAGNOSTIC 1 EACH STRIP VI SCH ×4 (00:50→17:23)
[2020-11-13] MEDS: IPRATROPIUM BROMIDE 0.5 MG/2.5 ML NEBU NEB SCH ×4 (01:20→19:42)
[2020-11-13] MEDS: ALBUTEROL SULFATE 1.25 MG/3 ML NEBU NEB SCH ×4 (01:22→19:43)
[2020-11-13] MEDS ORDERED: BISACODYL 10 MG SUPP.RECT RC PRN (01:45)
[2020-11-13 05:19] LABS: HEMATOCRIT 28.2 % (31.2-41.9); MEAN CORPUSCULAR HEMOGLOBIN 31.5 uug (24.7-32.8); MEAN CORPUSCULAR VOLUME 95.4 fL (75.5-95.3); PLATELET COUNT (AUTO) 102 K/uL (179-408)
[2020-11-13 05:26] LABS: BILIRUBIN,TOTAL 0.4 mg/dL (0.2-1.0); CREATININE 0.9 mg/dL (0.6-1.3); MAGNESIUM 1.8 mg/dL (1.8-2.4); PHOSPHOROUS 3.6 mg/dL (2.5-4.9); POTASSIUM 3.7 mmol/L (3.5-5.1)
--- NOTE | 2020-11-13 07:10 | NUR ---
Received pt. resting comfortably, Resp: On room air with saturation of 97%. pt noted to be coughing and on/off unable to bring up secretions. Remains NPO. with no n/v/or diarrhea. Wni to gravity with clear yellow urine. ML patent and tko pt. received potassium replacement today. Neuro-small Awake, alert but confused.
[2020-11-13] MEDS: ACETYLCYSTEINE 10% 4ML VIAL NEB SCH ×2 (07:30→19:42)
[2020-11-13] MEDS: CEFEPIME HCL 1 G in IV DEXTROSE 5% 50 ML IV SCH ×2 (08:50→20:34)
[2020-11-13] MEDS: PANTOPRAZOLE SODIUM 40 MG VIAL IV SCH (08:53)
[2020-11-13] MEDS: ENOXAPARIN SODIUM 60 MG/0.6 ML DISP.SYRIN SQ SCH (08:54)
[2020-11-13] MEDS ORDERED: APIXABAN 2.5 MG TABLET GT SCH (09:00)
--- NOTE | 2020-11-13 09:00 | NUR ---
Patient seen by Chairman President And Chief Executive Officer Dr. Hilliard. Orders to continue with care plan.
--- NOTE | 2020-11-13 09:01 | NUR ---
Attending physician Dr. Cedillo in the unit to follow-up on patient report given and orders to down-grade pt. to telemetry status received and implemented.
--- NOTE | 2020-11-13 09:08 | NUR ---
Pulmonary services, Dr. Orozco in the unit to see and examine pt. report given see order hx.
[2020-11-13] MEDS: VALPROIC ACID 250 MG/5 ML LIQUID UDC GT SCH ×2 (09:49→17:15)
[2020-11-13] MEDS: VANCOMYCIN IV 1,000 MG in IV DEXTROSE 5% 250 ML IV SCH (09:49)
--- NOTE | 2020-11-13 10:48 | NUR ---
WOUND CARE CONSULT: PT PRESENTS WITH DEEP TISSUE INJURY IN EVOLUTION TO SACRAL AREA, PRESENT ON ADMISSION. DR VAZQUEZ NOTIFIED OF SURGICAL CONSULT/PT READMISSION. RECOMMENDATIONS MADE FOR SKIN PROTECTION. DISCUSSED WITH NURSING STAFF. PT IS ON FIRST STEP HELADIO TRIVEDI MD IN AGREEMENT WITH PLAN OF CARE. Addendum: 11/13/20 at 1050 by FAVIO RODARTE RN Amended: Links added.
[2020-11-13] MEDS: IV D5 1/2 NS 1000 ML 1,000 ML IV PRN (17:14)
--- NOTE | 2020-11-13 19:05 | NUR ---
Received patient in bed resting comfortably. Patient is awake and active. Patient is on 3L via NC with a productive cough that she seems to be able to clear somewhat effectively, but may require deep suctioning to assist with secretions. Remains NPO with no n/v/or diarrhea. Win to gravity with clear yellow urine. Patient is on a first step mattress, however it is currently deflated due to the patient attempting to get out of the bed. So signs of SOB or distress.
--- NOTE | 2020-11-13 22:55 | NUR ---
Patient had to be placed in mitten restraints due to pulling out one IV line, pulling off her NC and pulse ox, and pulling on her cesar and G-tube.
[2020-11-14] VITALS (8 sets, daily range): BP systolic 125–159; BP diastolic 40–113
[2020-11-14] MEDS: BLOOD SUGAR DIAGNOSTIC 1 EACH STRIP VI SCH ×5 (00:03→23:53)
[2020-11-14] MEDS: INSULIN REGULAR, HUMAN 300 UNIT/3 ML VIAL SQ PRN ×4 (00:04→23:55)
[2020-11-14] MEDS: IPRATROPIUM BROMIDE 0.5 MG/2.5 ML NEBU NEB SCH ×4 (01:27→20:00)
[2020-11-14] MEDS: ALBUTEROL SULFATE 1.25 MG/3 ML NEBU NEB SCH ×4 (01:28→20:00)
[2020-11-14] MEDS: VANCOMYCIN IV 1,000 MG in IV DEXTROSE 5% 250 ML IV SCH ×2 (03:51→21:00)
[2020-11-14 05:15] LABS: HEMATOCRIT 27.7 % (31.2-41.9); MEAN CORPUSCULAR HEMOGLOBIN 31.4 uug (24.7-32.8); PLATELET COUNT (AUTO) 109 K/uL (179-408)
[2020-11-14 05:20] LABS: CREATININE 0.7 mg/dL (0.6-1.3); POTASSIUM 3.4 mmol/L (3.5-5.1)
[2020-11-14] MEDS: ACETYLCYSTEINE 10% 4ML VIAL NEB SCH (07:37)
[2020-11-14] MEDS ORDERED: POTASSIUM CHLORIDE 20 MEQ POWDER PACKET GT ONE (08:00)
[2020-11-14] MEDS: CEFEPIME HCL 1 G in IV DEXTROSE 5% 50 ML IV SCH ×2 (08:04→19:50)
[2020-11-14] MEDS: PANTOPRAZOLE SODIUM 40 MG VIAL IV SCH (08:04)
[2020-11-14] MEDS: ENOXAPARIN SODIUM 60 MG/0.6 ML DISP.SYRIN SQ SCH (08:04)
[2020-11-14] MEDS: VALPROIC ACID 250 MG/5 ML LIQUID UDC GT SCH ×2 (08:05→16:44)
[2020-11-14] MEDS: Z GUARD REMEDY PASTE 57 GM TUBE TOP SCH ×2 (08:05→21:04)
--- NOTE | 2020-11-14 08:22 | NUR ---
Pt. was seen by MARIA FERNANDA KAY MD
[2020-11-14] MEDS: IV D5 1/2 NS 1000 ML 1,000 ML IV PRN (09:14)
--- NOTE | 2020-11-14 09:49 | NUR ---
Pt.was seen by .
[2020-11-14] MEDS ORDERED: POTASSIUM CHLORIDE 50 ML IV SCH (10:15)
[2020-11-14] MEDS ORDERED: NEPRO 1000 ML GT PRN (11:15)
--- NOTE | 2020-11-14 13:30 | NUR ---
Received patient from CCU via bed. Report given by nurse Fina. WS as follows BP 125/65, T 97.3, HR 72, RR 16, O2 sat 99%. She is on oxygen at 2L/m via NC. On monitoring tech. No distress noted. Body check done and photos taken on the skin condition and filed on the chart. Gtube Nepro feeding started as ordered at 35cc/hr, tolerated well. IV site intact, no infiltration noted, IV running. Kept patient on high fowlers position. Kept the call light in place within reach. Q1 rounding done. safety precautions maintained. Will continue to monitor. Endorsed to the nurse taking over after 1400H.
[2020-11-15] VITALS: BP 124/39
[2020-11-15] MEDS: ALBUTEROL SULFATE 1.25 MG/3 ML NEBU NEB SCH ×3 (00:48→13:00)
[2020-11-15] MEDS: IPRATROPIUM BROMIDE 0.5 MG/2.5 ML NEBU NEB SCH ×3 (00:48→13:00)
[2020-11-15 04:06] VITALS: BP 137/38
[2020-11-15] MEDS: BLOOD SUGAR DIAGNOSTIC 1 EACH STRIP VI SCH ×3 (05:58→17:07)
[2020-11-15 06:29] LABS: HEMATOCRIT 27.2 % (31.2-41.9); MEAN CORPUSCULAR HEMOGLOBIN 32.1 uug (24.7-32.8); MEAN CORPUSCULAR VOLUME 95.7 fL (75.5-95.3); PLATELET COUNT (AUTO) 108 K/uL (179-408)
--- NOTE | 2020-11-15 06:30 | NUR ---
End of Shift Report Pt rested well in between care; no acute distress; BMx2 incontinence care done; GTF off at 0600 and will resume at 1000H @ 55ml/hr; Vanco trough elevated and RX aware; vanco not given; repositioned q2h; needs attended; continue to monitor; continue plan of care.
[2020-11-15 06:58] LABS: CREATININE 0.8 mg/dL (0.6-1.3); MAGNESIUM 1.8 mg/dL (1.8-2.4); PHOSPHOROUS 2.6 mg/dL (2.5-4.9); POTASSIUM 3.3 mmol/L (3.5-5.1)
--- NOTE | 2020-11-15 07:30 | NUR ---
Received in bed resting. No acute distress. On 2 lpm nc tolerated. No sob noted. Iv intact and patent. Gt intact and patent off feeding for now. No nausea or vomiting noted. Kept comfortable. Safety measures in place. Will continue to monitor.
[2020-11-15 08:10] VITALS: BP 166/40
[2020-11-15] MEDS: CEFEPIME HCL 1 G in IV DEXTROSE 5% 50 ML IV SCH (08:53)
[2020-11-15] MEDS: PANTOPRAZOLE SODIUM 40 MG VIAL IV SCH (08:57)
[2020-11-15] MEDS: VALPROIC ACID 250 MG/5 ML LIQUID UDC GT SCH ×2 (08:57→17:00)
[2020-11-15] MEDS: ENOXAPARIN SODIUM 60 MG/0.6 ML DISP.SYRIN SQ SCH (08:58)
[2020-11-15] MEDS: Z GUARD REMEDY PASTE 57 GM TUBE TOP SCH (09:04)
[2020-11-15] MEDS ORDERED: POTASSIUM CHLORIDE 20 MEQ POWDER PACKET GT ONE (10:00)
--- NOTE | 2020-11-15 10:00 | NUR ---
Nepro tube feeding started at 55cc/hr. Will monitor for tolerance.
[2020-11-15] MEDS ORDERED: Blood Sugar Diagnostic VI (10:05)
[2020-11-15] MEDS ORDERED: VANC1PLA9 IV (10:05)
[2020-11-15] MEDS ORDERED: RXVAN XX (10:05)
[2020-11-15] MEDS ORDERED: APIX5TAB PO (10:05)
[2020-11-15] MEDS ORDERED: IPRA0.2S6 NEB (10:05)
[2020-11-15] MEDS ORDERED: ALBU1.25 NEB (10:05)
[2020-11-15] MEDS ORDERED: INSU100V28 SQ (10:05)
[2020-11-15] MEDS ORDERED: Nepro GT (10:05)
[2020-11-15 11:01] VITALS: BP 116/46
--- NOTE | 2020-11-15 11:30 | NUR ---
Patient on Nepro 55 cc/hr tolerating. No nausea or vomiting noted. Abdomen soft and not distended. Hob kept elevated for aspiration precaution. Will continue to monitor.
[2020-11-15] MEDS: INSULIN REGULAR, HUMAN 300 UNIT/3 ML VIAL SQ PRN ×2 (11:53→17:07)
[2020-11-15] MEDS ORDERED: VANCOMYCIN IV 1,000 MG in IV DEXTROSE 5% 250 ML IV SCH (14:00)
--- NOTE | 2020-11-15 14:15 | NUR ---
Skin check done and put in chart. No belongings list found in chart.
[2020-11-15 14:34] LABS: BAND % (MANUAL) 5 % (0-10); LYMPHOCYTES % (MANUAL) 20 % (20-40); MONOCYTES % (MANUAL) 7 % (2-10); NEUTROPHILS % (MANUAL) 65 % (42-75)
[2020-11-15 14:35] LABS: EOSINOPHILS % (MANUAL) 3 % (0-8)
[2020-11-15 14:44] VITALS: BP 151/46
--- NOTE | 2020-11-15 15:42 | NUR ---
Gave report to Mone [facility]EDRA re discharge instructions. Also relayed senior formulation scientist notes and recommendation for tube feeding goal rate.
--- NOTE | 2020-11-15 18:23 | NUR ---
Picked up by 2 Ingredient Scaler from [facility]. Patient alert and responsive, non verbal, opens eyes. On oxygen 2lpm nc spo2 95%. No acute distress. Midline on salena intact and patent. Gt intact and patent. Win catheter intact draining yellow urine. No hematuria noted. No nausea or vomiting noted. Discharge instructions relayed to the patient and Ingredient Scaler. Discharged via gurney in stable condition.
[2020-11-15] MEDS ORDERED: APIXABAN 2.5 MG TABLET PO SCH (21:00)
[2020-11-15] MEDS ORDERED: APIXABAN 5 MG TABLET PO SCH (21:00)
[2020-11-16] MEDS ORDERED: PANTOPRAZOLE ORAL SUSPENSION 40 MG SUSPDR.PKT GT SCH (09:00)
== END 2020-11-15 18:23 | DRG 871 ==
LOC: ER 04:06 → CCU 11:10 → TELE3 11-14 13:30
PROVIDERS: ADMIT Hospitalist; ATTEND Nurse Practitioner Acute Care
PROC: 5A1945Z Respiratory Ventilation, 24-96 Consecutive Hours (ICD-10-PCS; principal; 2020-11-10)
PROC: 0BH18EZ Insertion of Endotracheal Airway into Trachea, Via Natural or Artificial Opening Endoscopic (ICD-10-PCS; 2020-11-10)
PROC: 05H633Z Insertion of Infusion Device into Left Subclavian Vein, Percutaneous Approach (ICD-10-PCS; 2020-11-15)
PROC: B547ZZA Ultrasonography of Left Subclavian Vein, Guidance (ICD-10-PCS; 2020-11-15)
DX: A41.9 Sepsis, unspecified organism (principal); J69.0 Pneumonitis due to inhalation of food and vomit; R65.21 Severe sepsis with septic shock; J96.01 Acute respiratory failure with hypoxia; N17.0 Acute kidney failure with tubular necrosis; G93.41 Metabolic encephalopathy; I50.31 Acute diastolic (congestive) heart failure; I21.A1 Myocardial infarction type 2; J15.212 Pneumonia due to Methicillin resistant Staphylococcus aureus; D68.59 Other primary thrombophilia; E44.0 Moderate protein-calorie malnutrition; N39.0 Urinary tract infection, site not specified; E87.2 Acidosis; I13.0 Hypertensive heart and chronic kidney disease with heart failure and stage 1 through stage 4 chronic kidney disease, or unspecified chronic kidney disease; E87.0 Hyperosmolality and hypernatremia; J98.11 Atelectasis; D63.8 Anemia in other chronic diseases classified elsewhere; B96.5 Pseudomonas (aeruginosa) (mallei) (pseudomallei) as the cause of diseases classified elsewhere; E86.1 Hypovolemia; F03.90 Unspecified dementia, unspecified severity, without behavioral disturbance, psychotic disturbance, mood disturbance, and anxiety; Z86.73 Personal history of transient ischemic attack (TIA), and cerebral infarction without residual deficits; Z87.440 Personal history of urinary (tract) infections; Z93.1 Gastrostomy status; D69.6 Thrombocytopenia, unspecified; E86.0 Dehydration; E11.22 Type 2 diabetes mellitus with diabetic chronic kidney disease; E87.6 Hypokalemia; N18.9 Chronic kidney disease, unspecified; S30.0XXA Contusion of lower back and pelvis, initial encounter; E88.09 Other disorders of plasma-protein metabolism, not elsewhere classified; G40.909 Epilepsy, unspecified, not intractable, without status epilepticus; F20.9 Schizophrenia, unspecified; Z74.01 Bed confinement status; Z79.4 Long term (current) use of insulin; G89.29 Other chronic pain; E83.52 Hypercalcemia; Y92.129 Unspecified place in nursing home as the place of occurrence of the external cause; Z20.822 Contact with and (suspected) exposure to COVID-19; R13.10 Dysphagia, unspecified; Z79.01 Long term (current) use of anticoagulants; I48.0 Paroxysmal atrial fibrillation; E11.65 Type 2 diabetes mellitus with hyperglycemia; X58.XXXA Exposure to other specified factors, initial encounter; Y93.9 Activity, unspecified
CPT/HCPCS: 36415; 36600; 70030-TC; 71045; 80164; 83605; 83735; 84100; 84132; 84443; 85025; 85610; 85730; 87040; 87070; 87077; 87086; 87400; 93005; 94002; 94003; 94640; 94664; A4663; A6209; C9113; G0378; J0330; J0692; J0696; J1265; J1650; J1815; J1940; J1956; J2543; J3370; J3480; J3490; J3590; J7030; J7040; J7050; J7060; U0003